=== PATIENT | male | born 1935 | race Caucasian/White ===

== ENCOUNTER 2017-04-29 22:42 | Inpatient (IN) | payer MEDICARE, OTHER ==
[2017-04-29] MEDS ORDERED: LEVALBUTEROL HCL NEB 1.25 MG/3 ML AMPUL NEB ONE (23:14)
[2017-04-29] MEDS ORDERED: NORMAL SALINE 500 ML IV ONE (23:15)
--- NOTE | 2017-04-29 23:21 | ER Document Report ---
ED General - General Chief Complaint: Nausea/Vomiting Stated Complaint: TROUBLE BREATHING Time Seen by Provider: 04/29/17 23:06 Notes: Patient is an 81-year-old male who presents with complaint of shaking and difficulty breathing and vomiting. Family says this all started around 3 PM tonight. He says they are not sure if this is related but symptoms did start shortly after taking a new medication. He ordered a pill called "super beta prostate". Before taking this medicine he felt well. Since then he has been shaking, sweating, and his heart rate has been going fast he said difficulty breathing until now. They have not checked his temperature at home. He has a history of high blood pressure and high cholesterol. He was on Lasix previously but is no longer on that. That was stopped 2 days ago. No sick contacts at home. No other complaints at this time. He is a former smoker. He quit approximately 30 years ago. No history of asthma or COPD. - Related Data Allergies/Adverse Reactions: No Known Allergies Allergy (Verified 11/21/11 13:34) Past Medical History - Social History Smoking Status: Former Smoker Frequency of alcohol use: None Drug Abuse: None Family History: Reviewed & Not Pertinent - Past Medical History Cardiac Medical History: Reports: Hx Hypercholesterolemia, Hx Hypertension Endocrine Medical History: Reports: Hx Diabetes Mellitus Type 2 - Immunizations Hx Diphtheria, Pertussis, Tetanus Vaccination: Yes Review of Systems - Review of Systems Notes: My Normal Review Basic REVIEW OF SYSTEMS: CONSTITUTIONAL : Denies fever, chills, or sweats. Denies recent illness. EENT: Denies eye, ear, throat, or mouth pain or symptoms. Denies nasal or sinus congestion. CARDIOVASCULAR: Denies chest pain. RESPIRATORY: Feels short of breath. GASTROINTESTINAL: Denies abdominal pain. Vomiting. GENITOURINARY: Denies difficulty urinating, painful urination, burning, frequency, or blood in urine. MUSCULOSKELETAL: Denies neck or back pain or joint pain or swelling. SKIN: Denies rash or skin lesions. NEUROLOGICAL: Denies altered mental status or loss of consciousness. Denies headache. Denies weakness or paralysis or loss of use of either side. Has a tremor ALL OTHER SYSTEMS REVIEWED AND NEGATIVE. Physical Exam - Vital signs Vitals: Pulse Resp BP Pulse Ox 127 H 36 H 107/56 L 97 04/29/17 22:50 04/29/17 22:50 04/29/17 22:50 04/29/17 22:50 - Notes Notes: General Appearance: Patient is lying in bed sweating and shaking. Vitals: reviewed, See vital signs table. Head: no swelling or tenderness to the head Eyes: PERRL, EOMI, Conjuctiva clear Mouth: No decreasd moisture Throat: No tonsillar inflammation, No airway obstruction, Neck: Supple, no neck tenderness Lungs: scattered wheezing Heart: tachycardic rate, Regular rythm, No murmur, no rub Abdomen: Normal BS, soft, No rigidity, No abdominal tenderness, No guarding, no rebound, no abdominal masses, no organomegaly Extremities: strength 5/5 in all extremities, good pulses in all extremities, no swelling or tenderness in the extremities, no edema. Skin: warm, dry, appropriate color, no rash Neuro: speech clear, oriented x 3, normal affect, responds appropriately to questions. Course - Re-evaluation Re-evalutation: 04/29/17 23:16 04/29/17 23:18 04/29/17 23:30 Patient's rectal temp is 95. I am looking of the ingredients in the super beta prostate to see if they have any concerning interactions or could cause patient's symptoms. Feel that we have to also do septic workup based on his presentation his age. I will order that workup. I have placed a bear hugger on patient help with his hypothermia. 04/30/17 00:39 Patient still has a tremor on reevaluation. He says he is feeling some better now with a bear hugger's on him. I will place a core temp Mercedes catheter in place. I am waiting for the rest of his lab work come back. I did ask him again about the Lasix that was recently stopped. He said it was stopped because his kidneys were started be affected by it. He says he never has a history of CHF or fluid in his lungs. He says he was on a primarily because he would sometimes get lower extremity edema. Patient's breathing seems little bit better after receiving Xopenex treatment. His lactic acid unfortunately is 11. I will order him IV fluids. Also start antibiotics. I have ordered Zosyn. Await to order the Vancomycin until I see what his kidney function is. I informed the family and the patient with a plan and they are agreeable to it. Patient continues to deny any abdominal pain. He said he did have a little one episode of diarrhea earlier. He did vomit at home as well, but currently does not feel nauseous. 04/30/17 01:38 His core temp is up to 98. Bare blank has been removed. Indwelling Mercedes catheter is placed. He has had approximately a liter of urine out. Creatinine is 1.5. Due to a lactic acid of 11 and the vomiting I will obtain a CT scan of the abdomen pelvis with IV contrast. 04/30/17 02:34 On reevaluation the patient clinically says he is feeling improved. He looks as if he is improving some however he still is ill-appearing and that he still has shaking and tremor, he still tachycardic, he still weak appearing. He is no longer sweating. He is no longer tachypneic. His lung weinberg are almost completely clear. He now just has very slight wheezing. He continues denying abdominal pain and a CT scan was negative for ischemia. He has not had any further vomiting. I do not think patient's symptoms are related to the beta prostate medication he took. I looked up the ingredients I do not see anything that could cause this type of potential reaction with 1 dose of this medication. Mercedes catheter has been placed and we got approximately liter of urine out. There is no evidence of kidney stone on the CT scan. I talked to the patient and his family at length. I informed him that I suspect he is septic. I told him I do not yet have a source of the infection. I will repeat his lactic acid as well as chemistry panel. I informed both patient and family that he is 81 years old and does have some very concerning findings on the left. I informed him that he could get much worse where he could improve over next 24 hours. Meantime we will continue antibiotics. I was called and spoke with Dr. Tejada who is a physician covering for Dr. Garza. I informed the patient's condition and laboratory findings and history. He agrees with admitting the patient. I will place the patient in ICU due to the elevated lactic acid and high heart rate. - Vital Signs Vital signs: Temp Pulse Resp BP Pulse Ox 95.0 F L 127 H 36 H 107/56 L 97 04/29/17 23:26 04/29/17 22:50 04/29/17 22:50 02/09/18 22:50 04/29/17 22:50 - Laboratory Result Diagrams: 04/29/17 23:55 04/29/17 23:55 Laboratory results interpreted by me: 04/29/17 04/29/17 04/29/17 23:55 23:55 23:55 WBC 22.9 H RBC 3.95 L Hgb 12.2 L Hct 37.4 L Seg Neuts % (Manual) 82 H Band Neutrophils % 1 L Lymphocytes % (Manual) 9 L Abs Neuts (Manual) 19.0 H Abs Monocytes (Manual) 1.6 H VBG pH VBG pCO2 VBG HCO3 Potassium 3.5 L Carbon Dioxide 11 L Anion Gap 28 H BUN 21 H Creatinine 1.50 H Est GFR ( Amer) 54 L Est GFR (Non-Af Amer) 45 L Glucose 296 H Lactic Acid 11.6 H Magnesium Urine Glucose (UA) Urine Ketones 04/29/17 04/29/17 04/30/17 23:55 23:55 01:09 WBC RBC Hgb Hct Seg Neuts % (Manual) Band Neutrophils % Lymphocytes % (Manual) Abs Neuts (Manual) Abs Monocytes (Manual) VBG pH 7.25 L VBG pCO2 28.2 L VBG HCO3 12.1 L Potassium Carbon Dioxide Anion Gap BUN Creatinine Est GFR ( Amer) Est GFR (Non-Af Amer) Glucose Lactic Acid Magnesium 1.4 L Urine Glucose (UA) >=500 H Urine Ketones 20 H - EKG Interpretation by Me Additional EKG results interpreted by me: 04/29/17 23:32 EKG is reviewed and interpreted by me. Due to the patient's shaking the EKG is very difficult to interpret as there is a lot of artifact. Heart rate is read by the machine is 127.*Determine if this is A. fib or sinus. I think I can see P waves make me think this is more likely sinus with occasional PVC. I do not see any obvious signs of ST segment elevation or depression; however, again there is a large amount of artifact due to tremor. Once the patient's tremor comes down we will have to do a repeat EKG to be able to clearly assess. Discharge - Discharge Clinical Impression: Tachycardia, Lactic acidosis, Wheezing, Hypokalemia, Hypomagnesemia Sepsis Qualifiers: Sepsis type: sepsis due to unspecified organism Qualified Code(s): A41.9 - Sepsis, unspecified organism Vomiting Qualifiers: Vomiting type: unspecified Vomiting Intractability: unspecified Nausea presence : unspecified Qualified Code(s): R11.10 - Vomiting, unspecified Condition: Serious Disposition: ADMITTED INPATIENT Admitting Provider: [facility] Unit Admitted: ICU
--- NOTE | 2017-04-29 23:56 | RADIOLOGY REPORT (SQ) ---
EXAM DESCRIPTION: CHEST SINGLE VIEW COMPLETED DATE/TIME: 04/29/2017 11:30 pm REASON FOR STUDY: dyspnea COMPARISON: None. EXAM PARAMETERS: NUMBER OF VIEWS: One view. TECHNIQUE: Single frontal radiographic view of the chest acquired. RADIATION DOSE: NA LIMITATIONS: None. FINDINGS: LUNGS AND PLEURA: No opacities, masses or pneumothorax. No pleural effusion. MEDIASTINUM AND HILAR STRUCTURES: No masses. Contour normal. HEART AND VASCULAR STRUCTURES: Heart normal in size. Normal vasculature. BONES: No acute findings. HARDWARE: None in the chest. OTHER: No other significant finding. IMPRESSION: NO ACUTE RADIOGRAPHIC FINDING IN THE CHEST. TECHNICAL DOCUMENTATION: JOB ID: [id number] [id number] 2010 [employer]- All Rights Reserved
[2017-04-30 00:10] LABS: VENOUS BLOOD BASE EXCESS -13.7 mmol/L; VENOUS BLOOD HCO3 12.1 mmol/L (20-32); VENOUS BLOOD PCO2 28.2 mmHg (35-63); VENOUS BLOOD PH 7.25 (7.30-7.42)
[2017-04-30 00:24] LABS: ALANINE AMINOTRANSFERASE 26 U/L (21-72); ALBUMIN 4.7 g/dL (3.5-5.0); ALKALINE PHOSPHATASE 87 U/L (38-126); ASPARTATE AMINO TRANSFERASE 30 U/L (17-59); BILIRUBIN,DIRECT 0.3 mg/dL (0.0-0.4); BILIRUBIN,TOTAL 0.6 mg/dL (0.2-1.3); BLOOD UREA NITROGEN 21 mg/dL (7-20); CALCIUM 10.1 mg/dL (8.4-10.2); CARBON DIOXIDE 11 mmol/L (22-30); CHLORIDE 101 mmol/L (98-107); GLUCOSE 296 mg/dL (75-110); TOTAL PROTEIN 6.9 g/dL (6.3-8.2)
[2017-04-30 00:26] LABS: HEMATOCRIT 37.4 % (37.9-51.0); HEMOGLOBIN 12.2 g/dL (13.5-17.0); MEAN CORPUSCULAR HGB CONC 32.7 g/dL (32.0-36.0); MEAN CORPUSCULAR VOLUME 95 fl (80-97); RED BLOOD COUNT 3.95 10^6/uL (4.35-5.55); RED CELL DISTRIBUTION WIDTH 13.6 % (11.5-14.0); WHITE BLOOD COUNT 22.9 10^3/uL (4.0-10.5)
[2017-04-30 00:31] LABS: SODIUM 139.8 mmol/L (137-145)
[2017-04-30 00:34] LABS: ANION GAP 28 (5-19); POTASSIUM 3.5 mmol/L (3.6-5.0)
[2017-04-30] MEDS ORDERED: PIPERACILLIN/TAZOBACTAM 4.5 GM VIAL IV ONE (00:38)
[2017-04-30 00:50] LABS: ABSOLUTE LYMPHOCYTES# (MANUAL) 2.3 10^3/uL (0.5-4.7); ABSOLUTE MONOCYTES # (MANUAL) 1.6 10^3/uL (0.1-1.4); BAND NEUTROPHILS % (MANUAL) 1 % (3-5); BASOPHILS % (MANUAL) 0 % (0-2); EOSINOPHILS % (MANUAL) 0 % (0-6); LYMPHOCYTES % (MANUAL) 9 % (13-45); MONOCYTES % (MANUAL) 7 % (3-13); SEGMENTED NEUTROPHILS % (MAN) 82 % (42-78); TOTAL CELLS COUNTED 100
[2017-04-30 00:52] LABS: OVALOCYTES SLIGHT; PLATELET CLUMPS PRESENT; PLATELET COMMENT ADEQUATE; PLATELET COUNT 332 10^3/uL (150-450); POIKILOCYTOSIS SLIGHT
[2017-04-30] MEDS ORDERED: NORMAL SALINE 1000 ML 1,000 ML IV ONE (01:17)
[2017-04-30 01:36] LABS: APPEARANCE,URINE CLEAR; BILIRUBIN,URINE NEGATIVE (NEGATIVE); COLOR,URINE YELLOW; GLUCOSE, URINE >=500 mg/dL (NEGATIVE); KETONES,URINE 20 mg/dL (NEGATIVE); LEUKOCYTE ESTERASE,URINE NEGATIVE (NEGATIVE); NITRITE,URINE NEGATIVE (NEGATIVE); PROTEIN,URINE NEGATIVE (NEGATIVE); URINE SPECIFIC GRAVITY 1.009; UROBILINOGEN,URINE NEGATIVE mg/dL (<2.0)
[2017-04-30 01:40] LABS: FREE T4 (FREE THYROXINE) 2.08 ng/dL (0.78-2.19)
[2017-04-30 01:54] LABS: THYROID STIMULATING HORMONE 1.08 uIU/mL (0.47-4.68)
[2017-04-30] MEDS ORDERED: VANCOMYCIN HCL INJ 1000 MG VIAL IV ONE (02:07)
--- NOTE | 2017-04-30 02:18 | RADIOLOGY REPORT (SQ) ---
EXAM DESCRIPTION: CT ABDOMEN AND PELVIS WITH CONTRAST CLINICAL HISTORY: vomiting, diarrhea, elevated alctic acid COMPARISON: None Available. TECHNIQUE: CT of the abdomen and pelvis are performed during IV bolus administration of 89 mL of Isovue-370. DLP: 1439.82 mGycm FINDINGS: Abdomen: The liver has normal size and density. No intrahepatic mass or biliary dilatation. No calcified gallstones. The spleen, pancreas, and adrenal glands are unremarkable. The kidneys have normal size and contour without evidence of solid mass or hydronephrosis. Punctate nonobstructing right renal calculi. Atherosclerotic calcification of the abdominal aorta. IVC is unremarkable. The portal vein patent. The proximal visceral and renal arteries are patent. No free intraperitoneal air. The stomach and duodenum have normal course. Pelvis: Postoperative change in the anterior abdominal wall. Prostate is not enlarged. Mercedes catheter in the urinary bladder. No free pelvic fluid or lymphadenopathy. Scattered diverticula of the colon without pericolic fat stranding. No dilated loops of large or small bowel. Normal appendix. The visualized lung bases are clear. No destructive bone lesions identified. Degenerative change of the spine. IMPRESSION: 1. No acute inflammatory or obstructive abnormality identified. 2. Punctate nonobstructing right renal calculi. 3. Diverticulosis without evidence of acute diverticulitis. This exam was performed according to our departmental dose-optimization program, which includes automated exposure control, adjustment of the mA and/or kV according to patient size and/or use of iterative reconstruction technique.
[2017-04-30] MEDS: MAGNESIUM SULFATE/D5W 1 GM/100 ML RTUPB IV SCH ×2 (03:02→04:19)
[2017-04-30] MEDS: POTASSI CL 20 MEQ/50 ML RIDER 20 MEQ/50 ML RTUPB IV SCH ×2 (03:02→05:16)
[2017-04-30] MEDS ORDERED: RINGERS SOLUTION,LACTATED 1,000 ML IV PRN (03:11)
[2017-04-30 04:28] LABS: ANION GAP 17 (5-19); BLOOD UREA NITROGEN 17 mg/dL (7-20); CALCIUM 9.2 mg/dL (8.4-10.2); CARBON DIOXIDE 17 mmol/L (22-30); CHLORIDE 106 mmol/L (98-107); GLUCOSE 235 mg/dL (75-110); POTASSIUM 3.7 mmol/L (3.6-5.0); SODIUM 139.9 mmol/L (137-145)
[2017-04-30] MEDS ORDERED: INSULIN LISPRO 100 UNIT/ML 3 ML VIAL SUBCUT PRN (07:22)
[2017-04-30] MEDS ORDERED: DEXTROSE 50%-WATER 25 GM/50 ML DISP.SYRIN IV PRN ×2 (07:22)
[2017-04-30] MEDS ORDERED: GLUCAGON,HUMAN RECOMB 1 MG INJ IM PRN (07:22)
[2017-04-30] MEDS ORDERED: DEXTROSE 40% GEL 15 GM TUBE PO PRN ×2 (07:22)
[2017-04-30 08:44] LABS: ARTERIAL BLOOD BASE EXCESS -6.3 mmol/L; ARTERIAL BLOOD H2CO3 0.85 mmol/L (1.05-1.35); ARTERIAL BLOOD HCO3 17.1 mmol/L (20-26); ARTERIAL BLOOD O2 SATURATION 91.7 % (94-98); ARTERIAL BLOOD PCO2 28.4 mmHg (35-45); ARTERIAL BLOOD PO2 60.8 mmHg (80-100)
[2017-04-30 08:45] LABS: INTERNATIONAL RATION (INR) 1.06; PARTIAL THROMBOPLASTIN TIME 31.9 SEC (23.5-35.8); PROTHROMBIN TIME 14.5 SEC (11.4-15.4)
[2017-04-30 08:45] LABS: ARTERIAL BLOOD FIO2 2L
[2017-04-30 09:04] LABS: LIPASE 51.5 U/L (23-300); MAGNESIUM 1.7 mg/dL (1.6-2.3); PHOSPHORUS 2.9 mg/dL (2.5-4.5)
[2017-04-30 09:18] LABS: CREATINE KINASE MB 7.62 ng/mL (<4.55)
[2017-04-30] MEDS: NORMAL SALINE 1000 ML 1,000 ML IV PRN ×2 (09:21→15:42)
[2017-04-30 09:22] LABS: FREE T4 (FREE THYROXINE) 2.06 ng/dL (0.78-2.19)
[2017-04-30 09:26] LABS: TROPONIN I 0.176 ng/mL
[2017-04-30 09:36] LABS: THYROID STIMULATING HORMONE 0.41 uIU/mL (0.47-4.68)
[2017-04-30] MEDS: ENOXAPARIN SODIUM INJ 40 MG/0.4 ML DISP.SYRIN SUBCUT SCH (10:03)
--- NOTE | 2017-04-30 10:22 | EKG REPORT ---
SEVERITY:- ABNORMAL ECG - ATRIAL FIBRILLATION ST ELEVATION, PROBABLE INFERIOR INJURY VS ARTIFACT, REC REPEAT EKG : Confirmed by: Dasha Lezama 30-Apr-2017 10:21:47
--- NOTE | 2017-04-30 10:23 | EKG REPORT ---
SEVERITY:- ABNORMAL ECG - ATRIAL FIBRILLATION, V-RATE 101-142 MULTIFORM VENTRICULAR PREMATURE COMPLEXES NONSPECIFIC INTRAVENTRICULAR CONDUCTION DELAY PROBABLE INFERIOR INFARCT, AGE INDETERMINATE CONSIDER POSTERIOR WALL INVOLVEMENT BASELINE ARTIFACTS PREVENTS ACCURATE INTERP, REC REPEAT EKG : Confirmed by: Dasha Lezama 30-Apr-2017 10:22:50
[2017-04-30] MEDS ORDERED: (PENDING PHARMACY ID) (Clonidine Hcl [Catapres 0.3 Mg Tablet] 0.3 MG) PO SCH (11:45)
[2017-04-30] MEDS: AMPICILLIN SODIUM/SULBACTAM NA 3 GM in NORMAL SALINE 100 ML IV SCH ×2 (12:14→18:46)
--- NOTE | 2017-04-30 13:38 | RADIOLOGY REPORT (SQ) ---
EXAM DESCRIPTION: CTA CHEST COMPLETED DATE/TIME: 04/30/2017 1:12 pm REASON FOR STUDY: hypoxemic COMPARISON: None. TECHNIQUE: CT scan of the chest performed using helical scanning technique with dynamic intravenous contrast injection. Images reviewed with lung, soft tissue and bone windows. Reconstructed coronal and sagittal MPR images reviewed. Additional 3 dimensional post-processing performed to develop Maximal Intensity Projection images ([place] P). All images stored on PACS. All CT scanners at this facility use dose modulation, iterative reconstruction, and/or weight based d osing when appropriate to reduce radiation dose to as low as reasonably achievable (ALARA). [facility]: Dose Right [facility]: CareDose [facility]: Dose Right [facility]: Teradose 4D [facility]: mValent CONTRAST TYPE AND DOSE: contrast/concentration: Isovue 370.00 mg/ml; Total Contrast Delivered: 73.0 ml; Total Saline Delivered: 110.0 ml Contrast bolus adequate for pulmonary arteries and aorta. RENAL FUNCTION: BUN 17 creatinine 1.17. RADIATION DOSE: CT Rad equipment meets quality standard of care and radiation dose reduction techniq ues were employed. CTDIvol: 18.4 - 46.3 mGy. DLP: 731 mGy-cm. . LIMITATIONS: None. FINDINGS: LUNGS AND PLEURA: Mild atelectasis/ scarring. No masses, infiltrates, pneumothorax. No p leural effusions, calcifications. AORTA AND GREAT VESSELS: No aneurysm. Contrast bolus not optimized for the aorta. HEART: No pericardial effusion. No significant coronary artery calcifications. PULMONARY ARTERIES: No emboli visualized in the main pulmonary arteries or the segmental branches. HILAR AND MEDIASTINAL STRUCTURES: No identified masses or abnormal nodes. HARDWARE: None in the chest. UPPER ABDOMEN: No significant findings. Limited exam. THYROID AND OTHER SOFT TISSUES: No masses. No adenopathy. BONES: No acute or significant finding. 3D MIPS: Confirm above findings. OTHER: No other significant finding. IMPRESSION: NORMAL CTA OF THE CHEST. NO PULMONARY EMBOLI. COMMENT: Quality ID # [id number]: Final reports with documentation of one or more dose reduction techniques (e.g., Automated exposure control, adjustment of the mA and/or kV according to patient size, use of iterative reconstruction technique) TECHNICAL DOCUMENTATION: JOB ID: [id number] [employer]- All Rights Reserved
[2017-04-30] MEDS: AMLODIPINE BESYLATE 10 MG TABLET PO SCH (13:52)
[2017-04-30] MEDS: CLONIDINE HCL 0.1 MG TABLET PO SCH ×2 (13:53→21:14)
[2017-04-30] MEDS: ASPIRIN 81 MG TABLET, ENT COATED PO SCH (13:53)
[2017-04-30 17:05] LABS: CREATINE KINASE MB 9.12 ng/mL (<4.55)
[2017-04-30 17:12] LABS: TROPONIN I 0.524 ng/mL
--- NOTE | 2017-04-30 18:28 | PDOC H&P ---
History of Present Illness Admission Date/PCP: 04/30/17 02:51 ROXY AQUINO MD History of Present Illness: JOSE RAMON RAYA is a 81 year old male, he came to the emergency room last night for evaluation of shortness of breath, vomiting, he stated that the symptoms started at about 3 PM yesterday, he took a supplement called super beta prostate and his symptoms started soon after taking the supplement family not sure if this is coincidence or if this is the proximate cause of his symptoms. He is an ex-smoker, he stopped smoking over 30 years ago in the emergency room he was found to be hypothermic, a temperature recorded was 95, the heart rate was 127 the blood work that was done revealed leukocytosis with a left shift the WBC was 22,000. In the emergency room CT scan of the abdomen and pelvis was done it was negative, there was elevated lactic acid leukocytosis hypothymia all consistent with sepsis but there was no definitive source for the sepsis. I was called to admit this patient for Dr. Aquino. Earlier this morning the nurse stated that patient was short of breath and he has increased heart rate ABG was done on 2 L, pH 7.4 PCO2 28.4 PO2 60 bicarbonate 17.1 because of the relative hypoxemia CTA chest was done, it was negative for pulmonary embolism, there was no pneumonia. The neck was supple, patient sensorium was clear, meningitis was not suspected. On skin inspection there was no evidence of cellulitis, rectal examination was done, he has enlarged prostate but no evidence of inflammation on examination. there is no source for this sepsis syndrome. He denies any recent travel, patient said he had a flu shot. Past Medical History Cardiac Medical History: Reports: Hyperlipidema, Hypertension Endocrine Medical History: Reports: Diabetes Mellitus Type 2 Social History Smoking Status: Former Smoker Frequency of Alcohol Use: None Hx Recreational Drug Use: No Hx Prescription Drug Abuse: No - Advance Directive Resuscitation Status: Full Code Family History Family History: Reviewed & Not Pertinent Parental Family History Reviewed: Yes Children Family History Reviewed: Yes Sibling(s) Family History Reviewed.: Yes Medication/Allergy Home Medications: Amlodipine Besylate [Norvasc 10 mg Tablet] 10 mg PO DAILY 04/30/17 Aspirin [Ecotrin 81 mg EC Tablet] 81 mg PO DAILY 04/30/17 Atorvastatin Calcium [Lipitor 40 mg Tablet] 40 mg PO QHS 04/30/17 Clonidine HCl [Catapres 0.3 mg Tablet] 0.3 mg PO Q8 04/30/17 Levothyroxine Sodium [Synthroid 0.088 mg Tablet] 0.088 mg PO Q6AM 04/30/17 Lisinopril [Prinivil 40 mg Tablet] 40 mg PO Q12 04/30/17 Metformin HCl [Glucophage] 1,000 mg PO DAILY 04/30/17 Pantoprazole Sodium [Protonix] 40 mg PO DAILY 04/30/17 Allergies/Adverse Reactions: No Known Allergies Allergy (Verified 11/21/11 13:34) Review of Systems Constitutional: PRESENT: chills Eyes: ABSENT: visual disturbances Ears: ABSENT: hearing changes Cardiovascular: PRESENT: dyspnea on exertion Respiratory: PRESENT: cough Gastrointestinal: PRESENT: vomiting Genitourinary: ABSENT: dysuria, hematuria Musculoskeletal: ABSENT: joint swelling Integumentary: ABSENT: rash, wounds Neurological: ABSENT: abnormal gait, abnormal speech, confusion, dizziness, focal weakness, syncope Psychiatric: ABSENT: anxiety, depression, homidical ideation, suicidal ideation Endocrine: ABSENT: cold intolerance, heat intolerance, menstrual abnormalities, polydipsia, polyuria Hematologic/Lymphatic: ABSENT: easy bleeding, easy bruising, lymphadenopathy Physical Exam Vital Signs: Temp Pulse Resp BP Pulse Ox 98.6 F 145 H 20 134/74 H 96 04/30/17 18:00 04/30/17 18:00 04/30/17 18:00 04/30/17 18:00 04/30/17 18:00 Intake & Output 04/29/17 04/30/17 05/01/17 06:59 06:59 06:59 Intake Total 0 Output Total 1999 2500 Balance -2000 -2500 General appearance: PRESENT: no acute distress Head exam: PRESENT: atraumatic, normocephalic Eye exam: PRESENT: conjunctiva pink, EOMI, PERRLA Ear exam: PRESENT: normal external ear exam Mouth exam: PRESENT: moist, tongue midline Neck exam: PRESENT: full ROM Respiratory exam: PRESENT: clear to auscultation anish Cardiovascular exam: PRESENT: RRR, +S1, +S2 Pulses: PRESENT: normal dorsalis pedis pul, +2 pedal pulses bilateral Vascular exam: PRESENT: normal capillary refill GI/Abdominal exam: PRESENT: normal bowel sounds, soft Rectal exam: PRESENT: deferred Neurological exam: PRESENT: alert, awake, oriented to person, oriented to place , oriented to time, oriented to situation, CN II-XII grossly intact Psychiatric exam: PRESENT: appropriate affect, normal mood Skin exam: PRESENT: dry, intact, warm Results Laboratory Results: 04/30/17 03:57 04/30/17 04/30/17 04/30/17 03:57 03:57 08:05 Carbonic Acid 0.85 L HCO3/H2CO3 Ratio 20:1 ABG pH 7.40 ABG pCO2 28.4 L ABG pO2 60.8 L ABG HCO3 17.1 L ABG O2 Saturation 91.7 L ABG Base Excess -6.3 FiO2 2L Sodium 139.9 Potassium 3.7 Chloride 106 Carbon Dioxide 17 L Anion Gap 17 BUN 17 Creatinine 1.17 Est GFR ( Amer) > 60 Est GFR (Non-Af Amer) > 60 Glucose 235 H Lactic Acid 4.5 H Calcium 9.2 Phosphorus Magnesium Ammonia Amylase Lipase TSH Free T4 04/30/17 04/30/17 04/30/17 08:19 08:19 08:19 Carbonic Acid HCO3/H2CO3 Ratio ABG pH ABG pCO2 ABG pO2 ABG HCO3 ABG O2 Saturation ABG Base Excess FiO2 Sodium Potassium Chloride Carbon Dioxide Anion Gap BUN Creatinine Est GFR ( Amer) Est GFR (Non-Af Amer) Glucose Lactic Acid Calcium Phosphorus 2.9 Magnesium 1.7 Ammonia 12.3 Amylase 164 H Lipase 51.5 TSH 0.41 L Free T4 2.06 04/30/17 04/30/17 04/30/17 08:19 08:19 15:02 Creatine Kinase 385 H Cancelled CK-MB (CK-2) 7.62 H Troponin I 0.176 04/30/17 04/30/17 04/30/17 15:02 16:30 16:30 Creatine Kinase 581 H CK-MB (CK-2) Cancelled 9.12 H Troponin I Cancelled 0.524 Impressions: Chest X-Ray 04/29/17 23:13 IMPRESSION: NO ACUTE RADIOGRAPHIC FINDING IN THE CHEST. Chest/Abdomen CTA 04/30/17 00:00 IMPRESSION: NORMAL CTA OF THE CHEST. NO PULMONARY EMBOLI. Abdomen/Pelvis CT 04/30/17 01:17 IMPRESSION: 1. No acute inflammatory or obstructive abnormality identified. 2. Punctate nonobstructing right renal calculi. 3. Diverticulosis without evidence of acute diverticulitis. This exam was performed according to our departmental dose-optimization program, which includes automated exposure control, adjustment of the mA and/or kV according to patient size and/or use of iterative reconstruction technique. Assessment & Plan - Diagnosis (1) Sepsis Qualifiers: Sepsis type: sepsis due to unspecified organism Qualified Code(s): A41.9 - Sepsis, unspecified organism Is this a current diagnosis for this admission?: Yes Plan: The etiology/source of sepsis is not clear, with treated empirically with antibiotic, Tamiflu, awaiting blood culture results
[2017-04-30] MEDS: OSELTAMIVIR PHOSPHATE 75 MG CAPSULE PO SCH (18:47)
[2017-04-30 20:37] LABS: CREATINE KINASE MB 10.4 ng/mL (<4.55)
[2017-04-30 20:45] LABS: TROPONIN I 0.761 ng/mL
[2017-04-30] MEDS: ATORVASTATIN CALCIUM 40 MG TABLET PO SCH (21:15)
[2017-04-30] MEDS: LISINOPRIL 10 MG TABLET PO SCH (21:15)
[2017-05-01] MEDS: AMPICILLIN SODIUM/SULBACTAM NA 3 GM in NORMAL SALINE 100 ML IV SCH ×5 (00:42→23:32)
[2017-05-01] MEDS ORDERED: DILTIAZEM HCL INJ 25 MG/5 ML VIAL ONE (03:43)
[2017-05-01] MEDS: NORMAL SALINE 1000 ML 1,000 ML IV PRN ×3 (03:55→12:01)
[2017-05-01 03:56] LABS: HEMOGLOBIN 13.6 g/dL (13.5-17.0); MEAN CORPUSCULAR HEMOGLOBIN 31.4 pg (27.0-33.4); MEAN CORPUSCULAR VOLUME 92 fl (80-97); PLATELET COUNT 248 10^3/uL (150-450); RED BLOOD COUNT 4.32 10^6/uL (4.35-5.55); RED CELL DISTRIBUTION WIDTH 13.7 % (11.5-14.0)
[2017-05-01] MEDS ORDERED: NORMAL SALINE 500 ML IV ONE (04:00)
[2017-05-01] MEDS ORDERED: DILTIAZEM HCL INJ 25 MG/5 ML VIAL IV ONE (04:00)
[2017-05-01 04:13] LABS: ALANINE AMINOTRANSFERASE 36 U/L (21-72); ALBUMIN 4.4 g/dL (3.5-5.0); ALKALINE PHOSPHATASE 83 U/L (38-126); ANION GAP 16 (5-19); ASPARTATE AMINO TRANSFERASE 53 U/L (17-59); BILIRUBIN,DIRECT 0.5 mg/dL (0.0-0.4); BILIRUBIN,TOTAL 0.9 mg/dL (0.2-1.3); BLOOD UREA NITROGEN 7 mg/dL (7-20); CALCIUM 10.1 mg/dL (8.4-10.2); CARBON DIOXIDE 21 mmol/L (22-30); CHLORIDE 103 mmol/L (98-107); CHOLESTEROL 118.45 mg/dL (0-200); GLUCOSE 110 mg/dL (75-110); POTASSIUM 3.5 mmol/L (3.6-5.0); SODIUM 140.3 mmol/L (137-145); TOTAL PROTEIN 7.1 g/dL (6.3-8.2); TRIGLYCERIDES 111 mg/dL (<150)
[2017-05-01 04:24] LABS: DIRECT LDL 55 mg/dL (<100)
[2017-05-01 04:37] LABS: ABSOLUTE NEUTROPHILS# (MANUAL) 16.8 10^3/uL (1.7-8.2); BASOPHILS % (MANUAL) 0 % (0-2); EOSINOPHILS % (MANUAL) 1 % (0-6); LYMPHOCYTES % (MANUAL) 10 % (13-45); METAMYELOCYTES % (MANUAL) 1 % (0); MONOCYTES % (MANUAL) 5 % (3-13); SEGMENTED NEUTROPHILS % (MAN) 83 % (42-78); TOTAL CELLS COUNTED 100
[2017-05-01 04:39] LABS: OVALOCYTES SLIGHT; POIKILOCYTOSIS SLIGHT; SCHISTOCYTES SLIGHT; TOXIC GRANULATION 2+
[2017-05-01 04:40] LABS: PLATELET COMMENT ADEQUATE; PLATELET LARGE PRESENT
[2017-05-01] MEDS: LEVOTHYROXINE SODIUM 0.088 MG TABLET PO SCH (06:07)
[2017-05-01] MEDS: CLONIDINE HCL 0.1 MG TABLET PO SCH ×3 (06:08→21:59)
[2017-05-01] MEDS: LANSOPRAZOLE 30 MG TAB.RAP.DR PO SCH (06:08)
--- NOTE | 2017-05-01 09:12 | EKG REPORT ---
SEVERITY:- ABNORMAL ECG - ATRIAL FLUTTER WITH 2:1 CONDUCTION BORDERLINE LEFT AXIS DEVIATION ST DEPRESSION, PROBABLY RATE RELATED : Confirmed by: Dasha Lezama 01-May-2017 09:11:51
--- NOTE | 2017-05-01 09:13 | EKG REPORT ---
SEVERITY:- ABNORMAL ECG - A FLUTTER WITH 2:1 CONDUCTION BORDERLINE LEFT AXIS DEVIATION REPOLARIZATION ABNORMALITY, PROB RATE RELATED : Confirmed by: Dasha Lezama 01-May-2017 09:12:49
--- NOTE | 2017-05-01 09:14 | EKG REPORT ---
SEVERITY:- ABNORMAL ECG - ATRIAL FLUTTER WITH 2;[address] DEPRESSION, PROBABLY RATE RELATED : Confirmed by: Dasha Lezama 01-May-2017 09:13:52
[2017-05-01] MEDS ORDERED: MAGNESIUM SULFATE/D5W 1 GM/100 ML RTUPB IV ONE (11:30)
[2017-05-01] MEDS: ASPIRIN 81 MG TABLET, ENT COATED PO SCH (11:58)
[2017-05-01] MEDS: OSELTAMIVIR PHOSPHATE 75 MG CAPSULE PO SCH ×2 (11:59→19:30)
[2017-05-01] MEDS: AMLODIPINE BESYLATE 10 MG TABLET PO SCH (11:59)
[2017-05-01] MEDS: METFORMIN HCL 500 MG TABLET PO SCH (11:59)
[2017-05-01] MEDS ORDERED: POTASSI CL 20 MEQ/50 ML RIDER 20 MEQ/50 ML RTUPB IV ONE (12:00)
[2017-05-01] MEDS: ENOXAPARIN SODIUM INJ 40 MG/0.4 ML DISP.SYRIN SUBCUT SCH (12:08)
[2017-05-01] MEDS: LISINOPRIL 10 MG TABLET PO SCH ×2 (12:09→22:00)
--- NOTE | 2017-05-01 17:01 | PDOC PROGRESS REPORT ---
Subjective Progress Note for:: 05/01/17 Subjective:: Patient was admitted yesterday with sepsis syndrome, the source of the sepsis is not clear. He is empirically on IV antibiotic, Unasyn and also Tamiflu. Tamiflu testing could not be done because of lack of reagents . Patient seemed to be doing well at this morning, is more responsive, is engaging in conversation with her yesterday. Last night he had episode of narrow complex tachycardia thought to be due to SVT, he had a dose of Lopressor 5 mg IV. He has been having episodes of sinus tachycardia yesterday due to the sepsis syndrome Reason For Visit: SEPSIS SYNDROME CAUSE Physical Exam Vital Signs: Temp Pulse Resp BP Pulse Ox 99.8 F 105 H 20 148/83 H 100 05/01/17 12:02 05/01/17 12:02 05/01/17 12:02 05/01/17 12:02 05/01/17 12:02 Intake & Output 04/30/17 05/01/17 05/02/17 06:59 06:59 06:59 Intake Total 1400 0 Output Total 2000 4800 500 Balance -2000 -3400 -500 Weight 78.6 kg General appearance: PRESENT: no acute distress Head exam: PRESENT: atraumatic, normocephalic Eye exam: PRESENT: conjunctiva pink, EOMI, PERRLA Ear exam: PRESENT: normal external ear exam Mouth exam: PRESENT: moist, tongue midline Neck exam: PRESENT: full ROM Respiratory exam: PRESENT: clear to auscultation anish Cardiovascular exam: PRESENT: RRR, +S1, +S2 Pulses: PRESENT: normal dorsalis pedis pul, +2 pedal pulses bilateral Vascular exam: PRESENT: normal capillary refill GI/Abdominal exam: PRESENT: normal bowel sounds, soft Rectal exam: PRESENT: deferred Neurological exam: PRESENT: alert, awake, oriented to person, oriented to place , oriented to time, oriented to situation, CN II-XII grossly intact Psychiatric exam: PRESENT: appropriate affect, normal mood Skin exam: PRESENT: dry, intact, warm Results Laboratory Results: 05/01/17 03:40 05/01/17 03:40 05/01/17 05/01/17 05/01/17 03:40 03:40 03:40 WBC 20.0 H RBC 4.32 L Hgb 13.6 Hct 40.0 MCV 92 MCH 31.4 MCHC 34.0 RDW 13.7 Plt Count 248 Seg Neutrophils % Not Reportable Lymphocytes % Not Reportable Monocytes % Not Reportable Eosinophils % Not Reportable Basophils % Not Reportable Absolute Neutrophils Not Reportable Absolute Lymphocytes Not Reportable Absolute Monocytes Not Reportable Absolute Eosinophils Not Reportable Absolute Basophils Not Reportable Sodium 140.3 Potassium 3.5 L Chloride 103 Carbon Dioxide 21 L Anion Gap 16 BUN 7 Creatinine 0.95 Est GFR ( Amer) > 60 Est GFR (Non-Af Amer) > 60 Glucose 110 Calcium 10.1 Magnesium 1.5 L Total Bilirubin 0.9 AST 53 ALT 36 Alkaline Phosphatase 83 Total Protein 7.1 Albumin 4.4 Triglycerides 111 Cholesterol 118.45 LDL Cholesterol Direct 55 VLDL Cholesterol 22.0 HDL Cholesterol 53 04/30/17 04/30/17 04/30/17 08:19 08:19 15:02 Creatine Kinase 385 H Cancelled CK-MB (CK-2) 7.62 H Troponin I 0.176 04/30/17 04/30/17 04/30/17 15:02 16:30 16:30 Creatine Kinase 581 H CK-MB (CK-2) Cancelled 9.12 H Troponin I Cancelled 0.524 04/30/17 04/30/17 20:00 20:00 Creatine Kinase 654 H CK-MB (CK-2) 10.40 H Troponin I 0.761 Impressions: Chest X-Ray 04/29/17 23:13 IMPRESSION: NO ACUTE RADIOGRAPHIC FINDING IN THE CHEST. Chest/Abdomen CTA 04/30/17 00:00 IMPRESSION: NORMAL CTA OF THE CHEST. NO PULMONARY EMBOLI. Abdomen/Pelvis CT 04/30/17 01:17 IMPRESSION: 1. No acute inflammatory or obstructive abnormality identified. 2. Punctate nonobstructing right renal calculi. 3. Diverticulosis without evidence of acute diverticulitis. This exam was performed according to our departmental dose-optimization program, which includes automated exposure control, adjustment of the mA and/or kV according to patient size and/or use of iterative reconstruction technique. Assessment & Plan - Diagnosis (1) Sepsis Qualifiers: Sepsis type: sepsis due to unspecified organism Qualified Code(s): A41.9 - Sepsis, unspecified organism Is this a current diagnosis for this admission?: Yes Plan: We will continue the IV antibiotic and the Tamiflu since patient's is responding to the regimen
[2017-05-01] MEDS: ATORVASTATIN CALCIUM 40 MG TABLET PO SCH (22:00)
[2017-05-02 05:22] LABS: ABSOLUTE BASOPHILS # (AUTO) 0.1 10^3/uL (0.0-0.2); ABSOLUTE EOSINOPHILS # (AUTO) 0.2 10^3/uL (0.0-0.6); ABSOLUTE LYMPHOCYTES (AUTO) 2.8 10^3/uL (0.5-4.7); ABSOLUTE MONOCYTES (AUTO) 1.4 10^3/uL (0.1-1.4); ABSOLUTE NEUT (AUTO) 8.3 10^3/uL (1.7-8.2); BASOPHILS % (AUTO) 0.8 % (0-2); EOSINOPHILS % (AUTO) 1.2 % (0-6); HEMATOCRIT 37.6 % (37.9-51.0); HEMOGLOBIN 12.7 g/dL (13.5-17.0); LYMPHOCYTES % (AUTO) 22.1 % (13-45); MEAN CORPUSCULAR HEMOGLOBIN 31.2 pg (27.0-33.4); MEAN CORPUSCULAR HGB CONC 33.6 g/dL (32.0-36.0); MEAN CORPUSCULAR VOLUME 93 fl (80-97); MONOCYTES % (AUTO) 10.7 % (3-13); PLATELET COUNT 212 10^3/uL (150-450); RED BLOOD COUNT 4.06 10^6/uL (4.35-5.55); SEGMENTED NEUTROPHILS % (AUTO) 65.2 % (42-78); TOTAL CELLS COUNTED % (AUTO) 100 %; WHITE BLOOD COUNT 12.7 10^3/uL (4.0-10.5)
[2017-05-02 05:59] LABS: ALANINE AMINOTRANSFERASE 24 U/L (21-72); ALBUMIN 3.4 g/dL (3.5-5.0); ALKALINE PHOSPHATASE 65 U/L (38-126); ANION GAP 11 (5-19); ASPARTATE AMINO TRANSFERASE 28 U/L (17-59); BILIRUBIN,DIRECT 0.1 mg/dL (0.0-0.4); BILIRUBIN,TOTAL 0.7 mg/dL (0.2-1.3); BLOOD UREA NITROGEN 13 mg/dL (7-20); CALCIUM 9.1 mg/dL (8.4-10.2); CARBON DIOXIDE 27 mmol/L (22-30); CHLORIDE 106 mmol/L (98-107); GLUCOSE 129 mg/dL (75-110); POTASSIUM 3.5 mmol/L (3.6-5.0); SODIUM 143.6 mmol/L (137-145); TOTAL PROTEIN 5.5 g/dL (6.3-8.2)
[2017-05-02] MEDS: CLONIDINE HCL 0.1 MG TABLET PO SCH ×3 (06:04→22:37)
[2017-05-02] MEDS: LANSOPRAZOLE 30 MG TAB.RAP.DR PO SCH (06:05)
[2017-05-02] MEDS: LEVOTHYROXINE SODIUM 0.088 MG TABLET PO SCH (06:05)
[2017-05-02] MEDS: AMPICILLIN SODIUM/SULBACTAM NA 3 GM in NORMAL SALINE 100 ML IV SCH ×3 (06:08→17:51)
[2017-05-02] MEDS ORDERED: POTASSIUM CHLORIDE 10 MEQ TABLET.SA PO ONE (08:45)
[2017-05-02] MEDS: METFORMIN HCL 500 MG TABLET PO SCH (10:03)
[2017-05-02] MEDS: ENOXAPARIN SODIUM INJ 40 MG/0.4 ML DISP.SYRIN SUBCUT SCH (10:06)
[2017-05-02] MEDS: LISINOPRIL 10 MG TABLET PO SCH (10:06)
[2017-05-02] MEDS: OSELTAMIVIR PHOSPHATE 75 MG CAPSULE PO SCH ×2 (10:09→17:51)
[2017-05-02] MEDS: AMLODIPINE BESYLATE 10 MG TABLET PO SCH (12:30)
[2017-05-02] MEDS: ASPIRIN 81 MG TABLET, ENT COATED PO SCH (12:37)
--- NOTE | 2017-05-02 13:20 | PDOC PROGRESS REPORT ---
Subjective Progress Note for:: 05/02/17 Subjective:: Patient was admitting in the hospital for possible sepsis and possible flulike symptoms and patient is currently doing much better Patient's denied any chest pain denied any shortness of the breath In the weekends patient have a some cardiac arrhythmias And patient's otherwise magnesium's level is all stable potassiums will replace it today Reason For Visit: SEPSIS SYNDROME CAUSE Physical Exam Vital Signs: Temp Pulse Resp BP Pulse Ox 97.7 F 93 20 109/58 L 97 05/02/17 11:34 05/02/17 11:34 05/02/17 11:34 05/02/17 11:34 05/02/17 11:34 Intake & Output 05/01/17 05/02/17 05/03/17 06:59 06:59 06:59 Intake Total 1400 3373 Output Total 4800 2600 Balance -3400 773 Weight 78.6 kg 78.4 kg General appearance: PRESENT: no acute distress, well-developed, well-nourished Head exam: PRESENT: atraumatic, normocephalic Eye exam: PRESENT: conjunctiva pink, EOMI, PERRLA. ABSENT: scleral icterus Ear exam: PRESENT: normal external ear exam Mouth exam: PRESENT: moist, tongue midline Neck exam: PRESENT: full ROM. ABSENT: carotid bruit, JVD, lymphadenopathy, thyromegaly Respiratory exam: PRESENT: clear to auscultation anish Cardiovascular exam: PRESENT: RRR. ABSENT: diastolic murmur, rubs, systolic murmur Pulses: PRESENT: normal dorsalis pedis pul, +2 pedal pulses bilateral Vascular exam: PRESENT: normal capillary refill GI/Abdominal exam: PRESENT: normal bowel sounds, soft. ABSENT: distended, guarding, mass, organolmegaly, rebound, tenderness Rectal exam: PRESENT: deferred Neurological exam: PRESENT: alert, awake, oriented to person, oriented to place , oriented to time, oriented to situation, CN II-XII grossly intact. ABSENT: motor sensory deficit Psychiatric exam: PRESENT: appropriate affect, normal mood. ABSENT: homicidal ideation, suicidal ideation Skin exam: PRESENT: dry, intact, warm. ABSENT: cyanosis, rash Results Laboratory Results: 05/02/17 05:04 05/02/17 05:04 05/02/17 05/02/17 05/02/17 05:04 05:04 05:04 WBC 12.7 H RBC 4.06 L Hgb 12.7 L Hct 37.6 L MCV 93 MCH 31.2 MCHC 33.6 RDW 14.0 Plt Count 212 Seg Neutrophils % 65.2 Lymphocytes % 22.1 Monocytes % 10.7 Eosinophils % 1.2 Basophils % 0.8 Absolute Neutrophils 8.3 H Absolute Lymphocytes 2.8 Absolute Monocytes 1.4 Absolute Eosinophils 0.2 Absolute Basophils 0.1 Sodium 143.6 Potassium 3.5 L Chloride 106 Carbon Dioxide 27 Anion Gap 11 BUN 13 Creatinine 1.11 Est GFR ( Amer) > 60 Est GFR (Non-Af Amer) > 60 Glucose 129 H Calcium 9.1 Magnesium 1.8 Total Bilirubin 0.7 AST 28 ALT 24 Alkaline Phosphatase 65 Total Protein 5.5 L Albumin 3.4 L 04/30/17 04/30/17 04/30/17 08:19 08:19 15:02 Creatine Kinase 385 H Cancelled CK-MB (CK-2) 7.62 H Troponin I 0.176 04/30/17 04/30/17 04/30/17 15:02 16:30 16:30 Creatine Kinase 581 H CK-MB (CK-2) Cancelled 9.12 H Troponin I Cancelled 0.524 04/30/17 04/30/17 20:00 20:00 Creatine Kinase 654 H CK-MB (CK-2) 10.40 H Troponin I 0.761 Impressions: Chest X-Ray 04/29/17 23:13 IMPRESSION: NO ACUTE RADIOGRAPHIC FINDING IN THE CHEST. Chest/Abdomen CTA 04/30/17 00:00 IMPRESSION: NORMAL CTA OF THE CHEST. NO PULMONARY EMBOLI. Abdomen/Pelvis CT 04/30/17 01:17 IMPRESSION: 1. No acute inflammatory or obstructive abnormality identified. 2. Punctate nonobstructing right renal calculi. 3. Diverticulosis without evidence of acute diverticulitis. This exam was performed according to our departmental dose-optimization program, which includes automated exposure control, adjustment of the mA and/or kV according to patient size and/or use of iterative reconstruction technique. Assessment & Plan - Diagnosis (1) Sepsis Qualifiers: Sepsis type: sepsis due to unspecified organism Qualified Code(s): A41.9 - Sepsis, unspecified organism Is this a current diagnosis for this admission?: Yes Plan: With unclear etiologies but patient is responding well well with the current medications (2) Tachycardia Is this a current diagnosis for this admission?: Yes Plan: Patient CT angiogram is negative for any PE we consult the Cardiology (3) Hypokalemia Is this a current diagnosis for this admission?: Yes Plan: Replace the potassiums (4) Hypertension Qualifiers: Hypertension type: essential hypertension Qualified Code(s): I10 - Essential (primary) hypertension Is this a current diagnosis for this admission?: Yes Plan: Currently stable continues to current medications (5) Type 2 diabetes mellitus Qualifiers: Diabetes mellitus complication status: with unspecified complications Is this a current diagnosis for this admission?: Yes Plan: Continues to current medication and sliding scale with [facility] protocol - Time Time Spent with patient: 15-24 minutes Medications reviewed and adjusted accordingly: Yes Anticipated discharge: Home Within: Other - Inpatient Certification Medical Necessity: Need Close Monitoring Due to Risk of Patient Decompensation Post Hospital Care: D/C Distribution Accounting Clerk Documentation - Plan Summary Plan Summary: Will DC the Mercedes catheter get the physical therapy evaluation and consult the cardiology
[2017-05-02] MEDS ORDERED: METOPROLOL SUCCINATE 25 MG TAB.SR.24H PO ONE (20:26)
[2017-05-02] MEDS: METOPROLOL SUCCINATE 25 MG TAB.SR.24H PO SCH (22:36)
[2017-05-02] MEDS: ATORVASTATIN CALCIUM 40 MG TABLET PO SCH (22:37)
[2017-05-03] MEDS: AMPICILLIN SODIUM/SULBACTAM NA 3 GM in NORMAL SALINE 100 ML IV SCH ×2 (01:19→06:25)
[2017-05-03 04:55] LABS: ABSOLUTE BASOPHILS # (AUTO) 0.1 10^3/uL (0.0-0.2); ABSOLUTE EOSINOPHILS # (AUTO) 0.7 10^3/uL (0.0-0.6); ABSOLUTE LYMPHOCYTES (AUTO) 3.1 10^3/uL (0.5-4.7); ABSOLUTE MONOCYTES (AUTO) 1.3 10^3/uL (0.1-1.4); ABSOLUTE NEUT (AUTO) 5.4 10^3/uL (1.7-8.2); BASOPHILS % (AUTO) 0.7 % (0-2); EOSINOPHILS % (AUTO) 6.7 % (0-6); HEMATOCRIT 37.6 % (37.9-51.0); HEMOGLOBIN 12.8 g/dL (13.5-17.0); LYMPHOCYTES % (AUTO) 29.3 % (13-45); MEAN CORPUSCULAR HEMOGLOBIN 31.6 pg (27.0-33.4); MEAN CORPUSCULAR HGB CONC 34.1 g/dL (32.0-36.0); MEAN CORPUSCULAR VOLUME 93 fl (80-97); MONOCYTES % (AUTO) 11.9 % (3-13); PLATELET COUNT 219 10^3/uL (150-450); RED BLOOD COUNT 4.06 10^6/uL (4.35-5.55); RED CELL DISTRIBUTION WIDTH 13.6 % (11.5-14.0); SEGMENTED NEUTROPHILS % (AUTO) 51.4 % (42-78); TOTAL CELLS COUNTED % (AUTO) 100 %; WHITE BLOOD COUNT 10.6 10^3/uL (4.0-10.5)
[2017-05-03 05:11] LABS: ALANINE AMINOTRANSFERASE 36 U/L (21-72); ALBUMIN 3.1 g/dL (3.5-5.0); ALKALINE PHOSPHATASE 63 U/L (38-126); ANION GAP 11 (5-19); ASPARTATE AMINO TRANSFERASE 44 U/L (17-59); BILIRUBIN,DIRECT 0.5 mg/dL (0.0-0.4); BILIRUBIN,TOTAL 0.6 mg/dL (0.2-1.3); BLOOD UREA NITROGEN 19 mg/dL (7-20); CARBON DIOXIDE 25 mmol/L (22-30); CHLORIDE 107 mmol/L (98-107); GLUCOSE 129 mg/dL (75-110); POTASSIUM 3.9 mmol/L (3.6-5.0); SODIUM 142.6 mmol/L (137-145); TOTAL PROTEIN 5.6 g/dL (6.3-8.2)
[2017-05-03] MEDS: CLONIDINE HCL 0.1 MG TABLET PO SCH ×2 (06:24→14:26)
[2017-05-03] MEDS: LEVOTHYROXINE SODIUM 0.088 MG TABLET PO SCH (06:24)
[2017-05-03] MEDS: LANSOPRAZOLE 30 MG TAB.RAP.DR PO SCH (06:24)
--- NOTE | 2017-05-03 09:30 | EKG REPORT ---
SEVERITY:- ABNORMAL ECG - SINUS RHYTHM : Confirmed by: Dasha Lezama 03-May-2017 09:29:34
[2017-05-03] MEDS: METOPROLOL SUCCINATE 25 MG TAB.SR.24H PO SCH (09:47)
[2017-05-03] MEDS: METFORMIN HCL 500 MG TABLET PO SCH (09:47)
[2017-05-03] MEDS: LISINOPRIL 10 MG TABLET PO SCH (09:48)
[2017-05-03] MEDS: OSELTAMIVIR PHOSPHATE 75 MG CAPSULE PO SCH ×2 (09:48→17:19)
[2017-05-03] MEDS: APIXABAN 2.5 MG TABLET PO SCH ×2 (09:48→17:19)
[2017-05-03] MEDS ORDERED: APIXABAN 2.5 MG TABLET PO SCH (10:00)
[2017-05-03] MEDS ORDERED: LISINOPRIL 10 MG TABLET PO ONE (11:00)
[2017-05-03] MEDS ORDERED: LISINOPRIL 10 MG TABLET ONE (14:19)
[2017-05-03] MEDS: AMLODIPINE BESYLATE 10 MG TABLET PO SCH (14:25)
[2017-05-03] MEDS: AMOXICILLIN TR/POT CLAVULANATE 500-125 MG TAB PO SCH (14:25)
[2017-05-03] MEDS: ASPIRIN 81 MG TABLET, ENT COATED PO SCH (14:26)
--- NOTE | 2017-05-03 14:58 | PDOC CONSULTATION ---
Consultation Consult Date: 05/02/17 Attending physician:: ROXY AQUINO Consult reason:: Atrial flutter fibrillation History of Present Illness Admission Date/PCP: 04/30/17 02:51 ROXY AQUINO MD Patient complains of: Generalized weakness History of Present Illness: JOSE RAMON RAYA is a 81 year old male, he came to the emergency room last night for evaluation of shortness of breath, vomiting, he stated that the symptoms started at about 3 PM yesterday, he took a supplement called super beta prostate and his symptoms started soon after taking the supplement family not sure if this is coincidence or if this is the proximate cause of his symptoms. He is an ex-smoker, he stopped smoking over 30 years ago in the emergency room he was found to be hypothermic, a temperature recorded was 95, the heart rate was 127 the blood work that was done revealed leukocytosis with a left shift the WBC was 22,000. In the emergency room CT scan of the abdomen and pelvis was done it was negative, there was elevated lactic acid leukocytosis hypothymia all consistent with sepsis but there was no definitive source for the sepsis. I was called to admit this patient for Dr. Aquino. Earlier this morning the nurse stated that patient was short of breath and he has increased heart rate ABG was done on 2 L, pH 7.4 PCO2 28.4 PO2 60 bicarbonate 17.1 because of the relative hypoxemia CTA chest was done, it was negative for pulmonary embolism, there was no pneumonia. The neck was supple, patient sensorium was clear, meningitis was not suspected. On skin inspection there was no evidence of cellulitis, rectal examination was done, he has enlarged prostate but no evidence of inflammation on examination. there is no source for this sepsis syndrome. He denies any recent travel, patient said he had a flu shot. This history was reviewed, confirmed and supplemented. While in the hospital patient noted to have atrial flutter fibrillation with rapid ventricular response. I have been asked to evaluate patient regarding this condition. Past Medical History Cardiac Medical History: Reports: Hyperlipidema, Hypertension Endocrine Medical History: Reports: Diabetes Mellitus Type 2 Psychiatric Medical History: Denies: Depression Social History Information Source: Patient Smoking Status: Former Smoker Frequency of Alcohol Use: None Hx Recreational Drug Use: No Hx Prescription Drug Abuse: No - Advance Directive Resuscitation Status: Full Code Surrogate healthcare decision maker:: Patient's is a surrogate decision-maker Family History Family History: Hypertension Parental Family History Reviewed: Yes Children Family History Reviewed: Yes Sibling(s) Family History Reviewed.: Yes Medication/Allergy Home Medications: Amlodipine Besylate [Norvasc 10 mg Tablet] 10 mg PO DAILY 04/30/17 Aspirin [Ecotrin 81 mg EC Tablet] 81 mg PO DAILY 04/30/17 Atorvastatin Calcium [Lipitor 40 mg Tablet] 40 mg PO QHS 04/30/17 Clonidine HCl [Catapres 0.3 mg Tablet] 0.3 mg PO Q8 04/30/17 Levothyroxine Sodium [Synthroid 0.088 mg Tablet] 0.088 mg PO Q6AM 04/30/17 Metformin HCl [Glucophage] 1,000 mg PO DAILY 04/30/17 Pantoprazole Sodium [Protonix] 40 mg PO DAILY 04/30/17 Amox Tr/Potassium Clavulanate [Augmentin "500" Tablet] 1 tab PO Q8 #15 tablet 05/04/17 Apixaban [Eliquis 2.5 mg Tablet] 2.5 mg PO BID #60 tablet 05/04/17 Lactobacillus Acidophilus [Acidophilus] 1 each PO BID #10 tablet 05/04/17 Lisinopril [Prinivil 10 mg Tablet] 10 mg PO DAILY #0 tablet 05/04/17 Metoprolol Succinate [Toprol Xl 25 mg Tab.sr] 25 mg PO Q12 #60 tab.sr.24h Oseltamivir Phosphate [Tamiflu 75 mg Capsule] 75 mg PO BID #4 capsule 05/04/17 Allergies/Adverse Reactions: No Known Allergies Allergy (Verified 11/21/11 13:34) Review of Systems Review of Systems: Please see history of present illness and past medical history as wall. Constitutional: fever or chills reported. Head : No recent chronic headaches, recent head injury. Eyes: No recent eye pain, diplopia, redness, discharge, acute visual changes. Ears: No recent chronic ear pain, acute hearing loss, ear discharge. Oral cavity: No recent ulcerations, bleeding, oral cavity discomfort. Neck: No recent acute neck pain reported. Hematologic: No recent easy bruising or bleeding or hematologic malignancy reported. Lymphatic: No recent lymphatic malignancy, chronic lymphadenopathy reported yet Cardiovascular system review: See history of present illness. Respiratory system review: No recent chronic cough, hemoptysis, blood clots in the lungs reported. Mild Shortness of breath on exertion Gastrointestinal system review: Negative for any recent acute or chronic abdominal pain, hematemesis, melena, recent change in bowel habits. Genitourinary system review: No recent acute or chronic hematuria, flank pain, UTI etc. reported. Skin system review: Negative for any recent abnormal bruising, no rash, no pruritus reported. Neurologic: No prior history of strokes, mini strokes, seizure disorder. Psychologic: No history of major psychosis or major depression reported. Musculoskeletal: Minor aches and pains reported. No acute joint swelling reported. Endocrine: No recent polyuria, polydipsia, recent heat or cold intolerance. Physical Exam Vital Signs: Temp Pulse Resp BP Pulse Ox 97.4 F 105 H 20 142/58 H 97 05/02/17 17:17 05/02/17 19:00 05/02/17 17:17 05/02/17 17:17 05/02/17 17:17 Intake & Output 05/01/17 05/02/17 05/03/17 06:59 06:59 06:59 Intake Total 1400 3373 1558 Output Total 4800 2600 700 Balance -3400 773 858 Weight 78.6 kg 78.4 kg Exam: GENERAL: well-nourished and in no acute distress. Alert and oriented x3 HEAD: Atraumatic, normocephalic. EYES: Pupils equal round and reactive to light, extraocular movements intact, sclera anicteric, conjunctiva are normal. ENT: TMs normal, nares patent, oropharynx clear without exudates. Moist mucous membranes. No oral ulcerations or bleeding gums noted NECK: supple without lymphadenopathy. Trachea is central. No cervical or axillary lymphadenopathy noted. Carotids are 2+, JVD WNL LUNGS: Respiration seems nonlabored, no significant accessory muscle action noted. Breath sounds clear to auscultation bilaterally and equal noted. No wheezes rales or rhonchi noted. No significant dullness noted on percussion. CHEST: Palpation of the chest wall shows no significant chest wall tenderness. No other significant abnormalities noted. HEART: Marion CUTTER [place]REL DRUM, No PSH, 1/6 JERI aortic area, 1/6 martinez systolic murmur mitral area, no rubs, no gallops. ABDOMEN: Soft, no significant tenderness appreciated, normoactive bowel sounds. No guarding, no rebound. No rigidity noted . No masses appreciated. EXTREMITIES: Pedal pulses are 1-2+, no calf tenderness noted. No clubbing or cyanosis.trace to 1+ pedal edema noted NEUROLOGICAL: Focused neurological exam showed no significant neurologic deficit. Normal speech, no focal weakness appreciated. PSYCH: Normal mood, normal affect. Judgment and insight within normal limits. SKIN: No significant ecchymosis, rash, ulcerations or signs of pruritus noted. MUSCULOSKELETAL EXAM: No significant joint swelling noted. Results Laboratory Results: 05/02/17 05:04 05/02/17 05:04 05/02/17 05/02/17 05/02/17 05:04 05:04 05:04 WBC 12.7 H RBC 4.06 L Hgb 12.7 L Hct 37.6 L MCV 93 MCH 31.2 MCHC 33.6 RDW 14.0 Plt Count 212 Seg Neutrophils % 65.2 Lymphocytes % 22.1 Monocytes % 10.7 Eosinophils % 1.2 Basophils % 0.8 Absolute Neutrophils 8.3 H Absolute Lymphocytes 2.8 Absolute Monocytes 1.4 Absolute Eosinophils 0.2 Absolute Basophils 0.1 Sodium 143.6 Potassium 3.5 L Chloride 106 Carbon Dioxide 27 Anion Gap 11 BUN 13 Creatinine 1.11 Est GFR ( Amer) > 60 Est GFR (Non-Af Amer) > 60 Glucose 129 H Calcium 9.1 Magnesium 1.8 Total Bilirubin 0.7 AST 28 ALT 24 Alkaline Phosphatase 65 Total Protein 5.5 L Albumin 3.4 L 04/30/17 04/30/17 04/30/17 08:19 08:19 15:02 Creatine Kinase 385 H Cancelled CK-MB (CK-2) 7.62 H Troponin I 0.176 04/30/17 04/30/17 04/30/17 15:02 16:30 16:30 Creatine Kinase 581 H CK-MB (CK-2) Cancelled 9.12 H Troponin I Cancelled 0.524 04/30/17 04/30/17 20:00 20:00 Creatine Kinase 654 H CK-MB (CK-2) 10.40 H Troponin I 0.761 EKG Comments: Sinus rhythm with frequent APCs Impressions: Chest X-Ray 04/29/17 23:13 IMPRESSION: NO ACUTE RADIOGRAPHIC FINDING IN THE CHEST. Chest/Abdomen CTA 04/30/17 00:00 IMPRESSION: NORMAL CTA OF THE CHEST. NO PULMONARY EMBOLI. Abdomen/Pelvis CT 04/30/17 01:17 IMPRESSION: 1. No acute inflammatory or obstructive abnormality identified. 2. Punctate nonobstructing right renal calculi. 3. Diverticulosis without evidence of acute diverticulitis. This exam was performed according to our departmental dose-optimization program, which includes automated exposure control, adjustment of the mA and/or kV according to patient size and/or use of iterative reconstruction technique. Assessment & Plan - Diagnosis (1) Atrial fibrillation Qualifiers: Atrial fibrillation type: paroxysmal Qualified Code(s): I48.0 - Paroxysmal atrial fibrillation Is this a current diagnosis for this admission?: Yes (2) Hypertension Qualifiers: Hypertension type: essential hypertension Qualified Code(s): I10 - Essential (primary) hypertension Is this a current diagnosis for this admission?: Yes (3) Type 2 diabetes mellitus Qualifiers: Diabetes mellitus complication status: with unspecified complications Is this a current diagnosis for this admission?: Yes (4) Sepsis Qualifiers: Sepsis type: sepsis due to unspecified organism Qualified Code(s): A41.9 - Sepsis, unspecified organism Is this a current diagnosis for this admission?: Yes (5) NSTEMI (non-ST elevated myocardial infarction) Is this a current diagnosis for this admission?: Yes - Notes Notes: Atrial fibrillation: Paroxysmal. Patient has high chads score. At this point recommend chronic anticoagulation if there are no contraindication. Patient empirically started on Eliquis therapy. For rate control patient placed on metoprolol succinate 25 mg p.o. twice daily. Increase as tolerated. Non-STEMI: Most likely related to sepsis. Patient not having any significant ST segment changes. He also denied any chest pain. Patient to be started on beta-anisha nevertheless. Continue with Eliquis therapy. Patient may benefit from a stress test at a later date preferably as an outpatient if needed. Hypertension: Blood pressure under satisfactory control. Continue with current antihypertensive regimen. Diabetes: Recommend good control of blood sugar. However should avoid any hypoglycemia and hyperglycemia. Patient being expertly managed by primary care MDeepa/hospitalist Sepsis: This is being well managed by the optical instrument assembler. Currently it is coming under control. Continue current therapeutic regimen. Recommend maintaining electrolytes within normal range. - Time Time Spent: 30 to 50 Minutes - CODE STATUS was discussed, patient remains full code. Surrogate decision-maker patient's . Multiple medical problems were addressed. More than 50% of the time spent coordinating care, discussing management plans with involved caregivers. Management plans discussed with involved personnels. Medical decision making was of moderate to high complexity , patient's has multiple comorbidities. Medications reviewed and adjusted accordingly: Yes
--- NOTE | 2017-05-03 16:57 | PDOC PROGRESS REPORT ---
Subjective Progress Note for:: 05/03/17 Subjective:: Patient is currently doing well pt has denied any chest pain denied any shortness of the breath Since seen by cardiology and started on Eliquis and patients walk with the walker with the physical therapy and doing well Patient's denied any headache denied any abdominal pain and no fever Reason For Visit: SEPSIS SYNDROME CAUSE Physical Exam Vital Signs: Temp Pulse Resp BP Pulse Ox 98.0 F 59 L 16 125/67 97 05/03/17 15:14 05/03/17 15:14 05/03/17 15:14 05/03/17 15:14 05/03/17 15:14 Intake & Output 05/02/17 05/03/17 05/04/17 06:59 06:59 06:59 Intake Total 3373 2468 10 Output Total 2600 2325 Balance 773 143 10 Weight 78.4 kg 78.9 kg General appearance: PRESENT: no acute distress, well-developed, well-nourished Head exam: PRESENT: atraumatic, normocephalic Eye exam: PRESENT: conjunctiva pink, EOMI, PERRLA. ABSENT: scleral icterus Ear exam: PRESENT: normal external ear exam Mouth exam: PRESENT: moist, tongue midline Neck exam: PRESENT: full ROM. ABSENT: carotid bruit, JVD, lymphadenopathy, thyromegaly Respiratory exam: PRESENT: clear to auscultation anish Cardiovascular exam: PRESENT: RRR. ABSENT: diastolic murmur, rubs, systolic murmur Pulses: PRESENT: normal dorsalis pedis pul, +2 pedal pulses bilateral Vascular exam: PRESENT: normal capillary refill GI/Abdominal exam: PRESENT: normal bowel sounds, soft. ABSENT: distended, guarding, mass, organolmegaly, rebound, tenderness Rectal exam: PRESENT: deferred Musculoskeletal exam: PRESENT: ambulatory Neurological exam: PRESENT: alert, awake, oriented to person, oriented to place , oriented to time, oriented to situation, CN II-XII grossly intact. ABSENT: motor sensory deficit Psychiatric exam: PRESENT: appropriate affect, normal mood. ABSENT: homicidal ideation, suicidal ideation Skin exam: PRESENT: dry, intact, warm. ABSENT: cyanosis, rash Results Laboratory Results: 05/03/17 04:42 05/03/17 04:42 05/03/17 05/03/17 04:42 04:42 WBC 10.6 H RBC 4.06 L Hgb 12.8 L Hct 37.6 L MCV 93 MCH 31.6 MCHC 34.1 RDW 13.6 Plt Count 219 Seg Neutrophils % 51.4 Lymphocytes % 29.3 Monocytes % 11.9 Eosinophils % 6.7 H Basophils % 0.7 Absolute Neutrophils 5.4 Absolute Lymphocytes 3.1 Absolute Monocytes 1.3 Absolute Eosinophils 0.7 H Absolute Basophils 0.1 Sodium 142.6 Potassium 3.9 Chloride 107 Carbon Dioxide 25 Anion Gap 11 BUN 19 Creatinine 0.92 Est GFR ( Amer) > 60 Est GFR (Non-Af Amer) > 60 Glucose 129 H Calcium 9.0 Total Bilirubin 0.6 AST 44 ALT 36 Alkaline Phosphatase 63 Total Protein 5.6 L Albumin 3.1 L 04/30/17 04/30/17 04/30/17 08:19 08:19 15:02 Creatine Kinase 385 H Cancelled CK-MB (CK-2) 7.62 H Troponin I 0.176 04/30/17 04/30/17 04/30/17 15:02 16:30 16:30 Creatine Kinase 581 H CK-MB (CK-2) Cancelled 9.12 H Troponin I Cancelled 0.524 04/30/17 04/30/17 20:00 20:00 Creatine Kinase 654 H CK-MB (CK-2) 10.40 H Troponin I 0.761 Impressions: Chest X-Ray 04/29/17 23:13 IMPRESSION: NO ACUTE RADIOGRAPHIC FINDING IN THE CHEST. Chest/Abdomen CTA 04/30/17 00:00 IMPRESSION: NORMAL CTA OF THE CHEST. NO PULMONARY EMBOLI. Abdomen/Pelvis CT 04/30/17 01:17 IMPRESSION: 1. No acute inflammatory or obstructive abnormality identified. 2. Punctate nonobstructing right renal calculi. 3. Diverticulosis without evidence of acute diverticulitis. This exam was performed according to our departmental dose-optimization program, which includes automated exposure control, adjustment of the mA and/or kV according to patient size and/or use of iterative reconstruction technique. Assessment & Plan - Diagnosis (1) Sepsis Qualifiers: Sepsis type: sepsis due to unspecified organism Qualified Code(s): A41.9 - Sepsis, unspecified organism Is this a current diagnosis for this admission?: Yes Plan: With unclear etiologies but patient is responding well well with the current medications (2) Tachycardia Is this a current diagnosis for this admission?: Yes Plan: Patient CT angiogram is negative for any PE we consult the Cardiology (3) Hypokalemia Is this a current diagnosis for this admission?: Yes Plan: All stable (4) Hypertension Qualifiers: Hypertension type: essential hypertension Qualified Code(s): I10 - Essential (primary) hypertension Is this a current diagnosis for this admission?: Yes Plan: Currently stable continues to current medications (5) Type 2 diabetes mellitus Qualifiers: Diabetes mellitus complication status: with unspecified complications Is this a current diagnosis for this admission?: Yes Plan: Continues to current medication and sliding scale with [facility] protocol - Plan Summary Plan Summary: We will switch everything p.o. discussed with the patient about Eliquis and side effect and a fall precautions and patient understand very well
[2017-05-03] MEDS: LACTOBACILLUS ACIDOPHILUS 250 MG TAB PO SCH (17:19)
--- NOTE | 2017-05-03 19:36 | PDOC PROGRESS REPORT ---
Subjective Progress Note for:: 05/03/17 Subjective:: Patient seems to be doing better with gradual improvement. Pt is denying any chest arm or neck discomfort. Patient denying any PND, orthopnea. Patient denied any sustained palpitations, dizziness, syncope, near syncope. Patient denying any fever chills. Patient denying any other significant discomfort. Patient is maintaining sinus rhythm. Frequent APCs and occasional VPCs noted Review of systems: Rest review of systems negative. Medications: Medications have been reviewed. Reason For Visit: SEPSIS SYNDROME CAUSE Physical Exam Vital Signs: Temp Pulse Resp BP Pulse Ox 98.0 F 59 L 16 125/67 97 05/03/17 15:14 05/03/17 15:14 05/03/17 15:14 05/03/17 15:14 05/03/17 15:14 Intake & Output 05/02/17 05/03/17 05/04/17 06:59 06:59 06:59 Intake Total 3373 2468 484 Output Total 2600 2325 Balance 773 143 484 Weight 78.4 kg 78.9 kg Exam: GENERAL: well-nourished and in no acute distress. Alert and oriented x3 HEAD: Atraumatic, normocephalic. EYES: Pupils equal round and reactive to light, extraocular movements intact, sclera anicteric, conjunctiva are normal. ENT: TMs normal, nares patent, oropharynx clear without exudates. Moist mucous membranes. No oral ulcerations or bleeding gums noted NECK: supple without lymphadenopathy. Trachea is central. No cervical or axillary lymphadenopathy noted. Carotids are 2+, JVD WNL LUNGS: Respiration seems nonlabored, no significant accessory muscle action noted. Breath sounds clear to auscultation bilaterally and equal noted. No wheezes rales or rhonchi noted. No significant dullness noted on percussion. CHEST: Palpation of the chest wall shows no significant chest wall tenderness. No other significant abnormalities noted. 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 ABDOMEN: Soft, no significant tenderness appreciated, normoactive bowel sounds. No guarding, no rebound. No rigidity noted . No masses appreciated. EXTREMITIES: Pedal pulses are 1-2+, no calf tenderness noted. No clubbing or cyanosis.trace to 1+ pedal edema noted NEUROLOGICAL: Focused neurological exam showed no significant neurologic deficit. Normal speech, no focal weakness appreciated. PSYCH: Normal mood, normal affect. Judgment and insight within normal limits. SKIN: No significant ecchymosis, rash, ulcerations or signs of pruritus noted. MUSCULOSKELETAL EXAM: No significant joint swelling noted. Results Laboratory Results: 05/03/17 04:42 05/03/17 04:42 05/03/17 05/03/17 04:42 04:42 WBC 10.6 H RBC 4.06 L Hgb 12.8 L Hct 37.6 L MCV 93 MCH 31.6 MCHC 34.1 RDW 13.6 Plt Count 219 Seg Neutrophils % 51.4 Lymphocytes % 29.3 Monocytes % 11.9 Eosinophils % 6.7 H Basophils % 0.7 Absolute Neutrophils 5.4 Absolute Lymphocytes 3.1 Absolute Monocytes 1.3 Absolute Eosinophils 0.7 H Absolute Basophils 0.1 Sodium 142.6 Potassium 3.9 Chloride 107 Carbon Dioxide 25 Anion Gap 11 BUN 19 Creatinine 0.92 Est GFR ( Amer) > 60 Est GFR (Non-Af Amer) > 60 Glucose 129 H Calcium 9.0 Total Bilirubin 0.6 AST 44 ALT 36 Alkaline Phosphatase 63 Total Protein 5.6 L Albumin 3.1 L 04/30/17 04/30/17 04/30/17 08:19 08:19 15:02 Creatine Kinase 385 H Cancelled CK-MB (CK-2) 7.62 H Troponin I 0.176 04/30/17 04/30/17 04/30/17 15:02 16:30 16:30 Creatine Kinase 581 H CK-MB (CK-2) Cancelled 9.12 H Troponin I Cancelled 0.524 04/30/17 04/30/17 20:00 20:00 Creatine Kinase 654 H CK-MB (CK-2) 10.40 H Troponin I 0.761 Impressions: Chest X-Ray 04/29/17 23:13 IMPRESSION: NO ACUTE RADIOGRAPHIC FINDING IN THE CHEST. Chest/Abdomen CTA 04/30/17 00:00 IMPRESSION: NORMAL CTA OF THE CHEST. NO PULMONARY EMBOLI. Abdomen/Pelvis CT 04/30/17 01:17 IMPRESSION: 1. No acute inflammatory or obstructive abnormality identified. 2. Punctate nonobstructing right renal calculi. 3. Diverticulosis without evidence of acute diverticulitis. This exam was performed according to our departmental dose-optimization program, which includes automated exposure control, adjustment of the mA and/or kV according to patient size and/or use of iterative reconstruction technique. Assessment & Plan - Diagnosis (1) Atrial fibrillation Qualifiers: Atrial fibrillation type: paroxysmal Qualified Code(s): I48.0 - Paroxysmal atrial fibrillation Is this a current diagnosis for this admission?: Yes (2) Hypertension Qualifiers: Hypertension type: essential hypertension Qualified Code(s): I10 - Essential (primary) hypertension Is this a current diagnosis for this admission?: Yes (3) Type 2 diabetes mellitus Qualifiers: Diabetes mellitus complication status: with unspecified complications Is this a current diagnosis for this admission?: Yes (4) Sepsis Qualifiers: Sepsis type: sepsis due to unspecified organism Qualified Code(s): A41.9 - Sepsis, unspecified organism Is this a current diagnosis for this admission?: Yes (5) NSTEMI (non-ST elevated myocardial infarction) Is this a current diagnosis for this admission?: Yes - Notes Notes: Patient's rhythm strips reviewed. No further paroxysmal atrial fibrillation noted but patient has frequent APCs. Recommend maintaining electrolytes within normal range. Elevated troponin I and non-STEMI: Most likely related to sepsis rather than acute coronary syndrome. Patient doing reasonably well on medical management. Will continue with it. Patient has been advised to report any chest discomfort. Patient was advised close cardiology follow-up. Atrial fibrillation: Paroxysmal. Patient has high [id number] score. At this point recommend chronic anticoagulation if there are no contraindication. Patient empirically started on Eliquis therapy. For rate control patient placed on metoprolol succinate 25 mg p.o. twice daily. Increase as tolerated. Hypertension: Blood pressure under satisfactory control. Continue with current antihypertensive regimen. Diabetes: Recommend good control of blood sugar. However should avoid any hypoglycemia and hyperglycemia. Patient being expertly managed by primary care MRodneyD/hospitalist Sepsis: This is being well managed by the supervisor blood donor recruiters. Currently it is coming under control. Continue current therapeutic regimen. Recommend maintaining electrolytes within normal range. - Time Time with patient: Greater than 35 minutes - CODE STATUS was discussed, patient remains full code. Surrogate decision-maker unchanged. Multiple medical problems were addressed. More than 50% of the time spent coordinating care, discussing management plans with involved caregivers. Management plans discussed with involved personnels. Medical decision making was of high complexity, patient's has multiple comorbidities. Medications reviewed and adjusted accordingly: Yes
[2017-05-04] MEDS: ATORVASTATIN CALCIUM 40 MG TABLET PO SCH (01:38)
[2017-05-04] MEDS: AMOXICILLIN TR/POT CLAVULANATE 500-125 MG TAB PO SCH ×2 (01:38→08:04)
[2017-05-04] MEDS: METOPROLOL SUCCINATE 25 MG TAB.SR.24H PO SCH ×2 (01:39→09:22)
[2017-05-04] MEDS: CLONIDINE HCL 0.1 MG TABLET PO SCH ×2 (01:39→08:03)
[2017-05-04 05:41] LABS: ABSOLUTE BASOPHILS # (AUTO) 0.1 10^3/uL (0.0-0.2); ABSOLUTE EOSINOPHILS # (AUTO) 0.7 10^3/uL (0.0-0.6); ABSOLUTE LYMPHOCYTES (AUTO) 2.6 10^3/uL (0.5-4.7); ABSOLUTE MONOCYTES (AUTO) 1.1 10^3/uL (0.1-1.4); BASOPHILS % (AUTO) 0.8 % (0-2); EOSINOPHILS % (AUTO) 7.8 % (0-6); HEMATOCRIT 36.6 % (37.9-51.0); HEMOGLOBIN 12.4 g/dL (13.5-17.0); LYMPHOCYTES % (AUTO) 27.2 % (13-45); MEAN CORPUSCULAR HEMOGLOBIN 31.3 pg (27.0-33.4); MEAN CORPUSCULAR HGB CONC 33.9 g/dL (32.0-36.0); MEAN CORPUSCULAR VOLUME 92 fl (80-97); MONOCYTES % (AUTO) 11.4 % (3-13); PLATELET COUNT 239 10^3/uL (150-450); RED BLOOD COUNT 3.96 10^6/uL (4.35-5.55); RED CELL DISTRIBUTION WIDTH 13.5 % (11.5-14.0); SEGMENTED NEUTROPHILS % (AUTO) 52.8 % (42-78); TOTAL CELLS COUNTED % (AUTO) 100 %; WHITE BLOOD COUNT 9.4 10^3/uL (4.0-10.5)
[2017-05-04 06:03] LABS: ANION GAP 11 (5-19); BLOOD UREA NITROGEN 22 mg/dL (7-20); CALCIUM 9.4 mg/dL (8.4-10.2); CARBON DIOXIDE 27 mmol/L (22-30); CHLORIDE 103 mmol/L (98-107); GLUCOSE 107 mg/dL (75-110); POTASSIUM 3.9 mmol/L (3.6-5.0); SODIUM 141.1 mmol/L (137-145)
[2017-05-04] MEDS: LANSOPRAZOLE 30 MG TAB.RAP.DR PO SCH (08:02)
[2017-05-04] MEDS: LEVOTHYROXINE SODIUM 0.088 MG TABLET PO SCH (08:02)
[2017-05-04 09:12] VITALS: BP 107/56
[2017-05-04] MEDS: LACTOBACILLUS ACIDOPHILUS 250 MG TAB PO SCH (09:21)
[2017-05-04] MEDS: OSELTAMIVIR PHOSPHATE 75 MG CAPSULE PO SCH (09:21)
[2017-05-04] MEDS: APIXABAN 2.5 MG TABLET PO SCH (09:21)
[2017-05-04] MEDS: METFORMIN HCL 500 MG TABLET PO SCH (09:22)
[2017-05-04] MEDS ORDERED: LISINOPRIL 10 MG TABLET PO SCH (10:00)
--- NOTE | 2017-05-04 12:38 | PDOC DISCHARGE SUMMARY ---
General - Admit/Disc Date/PCP Admission Date/Primary Care Provider: 04/30/17 02:51 ROXY AQUINO MD Discharge Date: 05/04/17 - Discharge Diagnosis (1) Sepsis Is this a current diagnosis for this admission?: Yes Summary: Currently all resolved with the not very clear etiology possible most likely a flulike symptomsWith all cultures is negative CT abdomen pelvis and CT chest is all negativesPatient response with antibiotics and the Tamiflu (2) Tachycardia Is this a current diagnosis for this admission?: Yes Summary: Probably from the atrial fibrillation's currently all stable (3) Hypokalemia Is this a current diagnosis for this admission?: Yes Summary: Currently resolved (4) Hypertension Is this a current diagnosis for this admission?: Yes Summary: Continues to current medication (5) Type 2 diabetes mellitus Is this a current diagnosis for this admission?: Yes Summary: Currently stable on discharge (6) Atrial fibrillation Is this a current diagnosis for this admission?: Yes Summary: Currently on Eliquis and beta-anisha and follow with the cardiology as outpatient and discussed with the patient and the family about the fall precautions and the side effect of the Eliquis - Additional Information Resuscitation Status: Full Code Discharge Diet: Diabetic Discharge Activity: Activity As Tolerated Prescriptions: Amox Tr/Potassium Clavulanate [Augmentin "500" Tablet] 1 tab PO Q8 #15 tablet Apixaban [Eliquis 2.5 mg Tablet] 2.5 mg PO BID #60 tablet Lactobacillus Acidophilus [Acidophilus] 1 each PO BID #10 tablet Lisinopril [Prinivil 10 mg Tablet] 10 mg PO DAILY #0 tablet Metoprolol Succinate [Toprol Xl 25 mg Tab.sr] 25 mg PO Q12 #60 tab.sr.24h Oseltamivir Phosphate [Tamiflu 75 mg Capsule] 75 mg PO BID #4 capsule Home Medications: Amlodipine Besylate [Norvasc 10 mg Tablet] 10 mg PO DAILY 04/30/17 Aspirin [Ecotrin 81 mg EC Tablet] 81 mg PO DAILY 04/30/17 Atorvastatin Calcium [Lipitor 40 mg Tablet] 40 mg PO QHS 04/30/17 Clonidine HCl [Catapres 0.3 mg Tablet] 0.3 mg PO Q8 04/30/17 Levothyroxine Sodium [Synthroid 0.088 mg Tablet] 0.088 mg PO Q6AM 04/30/17 Metformin HCl [Glucophage] 1,000 mg PO DAILY 04/30/17 Pantoprazole Sodium [Protonix] 40 mg PO DAILY 04/30/17 Amox Tr/Potassium Clavulanate [Augmentin "500" Tablet] 1 tab PO Q8 #15 tablet 05/04/17 Apixaban [Eliquis 2.5 mg Tablet] 2.5 mg PO BID #60 tablet 05/04/17 Lactobacillus Acidophilus [Acidophilus] 1 each PO BID #10 tablet 05/04/17 Lisinopril [Prinivil 10 mg Tablet] 10 mg PO DAILY #0 tablet 05/04/17 Metoprolol Succinate [Toprol Xl 25 mg Tab.sr] 25 mg PO Q12 #60 tab.sr.24h Oseltamivir Phosphate [Tamiflu 75 mg Capsule] 75 mg PO BID #4 capsule 05/04/17 History of Present Illness History of Present Illness: JOSE RAMON RAYA is a 81 year old male This is a 81-year-old male's brought to the emergency department with the generalized weakness and altered mental status and possible sepsis and lactic acidosis and admitting in the hospital and started on a broad-spectrum antibiotics and the Tamiflu Hospital Course Hospital Course: This 81-year-old male's admitting in the hospital is because possible sepsis and unclear etiologies with extensive workup done including the all cultures negative CT scan of the abdomen and pelvis were also negative for any acute findings and the patient's CT angiogram was also negative's for any pulmonary embolisms And was started on the Tamiflu for possible flu and started the IV Unasyn's and patient response very well with that Also have ARodney hobbs with rapid ventricular response and Dr. Lezama was consulted and patient was put on Eliquis in the beta-blockers IV antibiotic was switched to the p.o. and the patient's remain afebrile white count is normal Patient physical therapy evaluations and walk without any problems p.o. intake is all good Patient expressed to go home and at this point is pretty much patient on the p.o. medications discussed with the cardiology standpoints patient is stable to go homes and follow-up outpatients cardiology for further ongoing evaluations and echocardiograms discussions Discussed with the patient's and I patient's currently doing well Arrange the home health and physical therapy and fall precautions Physical Exam Vital Signs: Temp Pulse Resp BP Pulse Ox 98.6 F 109 H 16 107/56 L 97 05/04/17 09:11 05/04/17 09:11 05/04/17 09:11 05/04/17 09:11 05/04/17 09:11 Intake & Output 05/03/17 05/04/17 05/05/17 06:59 06:59 06:59 Intake Total 2468 689 Output Total 2325 200 Balance 143 489 Weight 78.9 kg 79.6 kg General appearance: PRESENT: no acute distress, well-developed, well-nourished Head exam: PRESENT: atraumatic, normocephalic Eye exam: PRESENT: conjunctiva pink, EOMI, PERRLA. ABSENT: scleral icterus Ear exam: PRESENT: normal external ear exam Mouth exam: PRESENT: moist, tongue midline Neck exam: PRESENT: full ROM. ABSENT: carotid bruit, JVD, lymphadenopathy, thyromegaly Respiratory exam: PRESENT: clear to auscultation anish Cardiovascular exam: PRESENT: RRR. ABSENT: diastolic murmur, rubs, systolic murmur Pulses: PRESENT: normal dorsalis pedis pul, +2 pedal pulses bilateral Vascular exam: PRESENT: normal capillary refill GI/Abdominal exam: PRESENT: normal bowel sounds, soft. ABSENT: distended, guarding, mass, organolmegaly, rebound, tenderness Rectal exam: PRESENT: deferred Extremities exam: ABSENT: full ROM, left AKA, right AKA, left BKA, right BKA, calf tenderness, joint swelling, pedal edema, tenderness, other Musculoskeletal exam: ABSENT: ambulatory, deformity, dislocation, full ROM, normal inspection, tenderness, other Neurological exam: PRESENT: alert, awake, oriented to person, oriented to place , oriented to time, oriented to situation, CN II-XII grossly intact. ABSENT: motor sensory deficit Psychiatric exam: PRESENT: appropriate affect, normal mood. ABSENT: homicidal ideation, suicidal ideation Skin exam: PRESENT: dry, intact, warm. ABSENT: cyanosis, rash Results Laboratory Results: 05/04/17 04:40 05/04/17 04:40 05/04/17 05/04/17 04:40 04:40 WBC 9.4 RBC 3.96 L Hgb 12.4 L Hct 36.6 L MCV 92 MCH 31.3 MCHC 33.9 RDW 13.5 Plt Count 239 Seg Neutrophils % 52.8 Lymphocytes % 27.2 Monocytes % 11.4 Eosinophils % 7.8 H Basophils % 0.8 Absolute Neutrophils 5.0 Absolute Lymphocytes 2.6 Absolute Monocytes 1.1 Absolute Eosinophils 0.7 H Absolute Basophils 0.1 Sodium 141.1 Potassium 3.9 Chloride 103 Carbon Dioxide 27 Anion Gap 11 BUN 22 H Creatinine 1.02 Est GFR ( Amer) > 60 Est GFR (Non-Af Amer) > 60 Glucose 107 Calcium 9.4 04/30/17 04/30/17 04/30/17 08:19 08:19 15:02 Creatine Kinase 385 H Cancelled CK-MB (CK-2) 7.62 H Troponin I 0.176 04/30/17 04/30/17 04/30/17 15:02 16:30 16:30 Creatine Kinase 581 H CK-MB (CK-2) Cancelled 9.12 H Troponin I Cancelled 0.524 04/30/17 04/30/17 20:00 20:00 Creatine Kinase 654 H CK-MB (CK-2) 10.40 H Troponin I 0.761 Impressions: Chest X-Ray 04/29/17 23:13 IMPRESSION: NO ACUTE RADIOGRAPHIC FINDING IN THE CHEST. Chest/Abdomen CTA 04/30/17 00:00 IMPRESSION: NORMAL CTA OF THE CHEST. NO PULMONARY EMBOLI. Abdomen/Pelvis CT 04/30/17 01:17 IMPRESSION: 1. No acute inflammatory or obstructive abnormality identified. 2. Punctate nonobstructing right renal calculi. 3. Diverticulosis without evidence of acute diverticulitis. This exam was performed according to our departmental dose-optimization program, which includes automated exposure control, adjustment of the mA and/or kV according to patient size and/or use of iterative reconstruction technique. Plan Time Spent: Greater than 30 Minutes - Patient's discharge home with the stable conditions follow outpatients repeat the CBC Chem-7 in 2 days and follow with the cardiology as outpatients His lisinopril was reduced due to the increase of susi pho[place]
--- NOTE | 2017-05-04 18:26 | XCELERA REPORT ---
[address] [address] Transthoracic Echocardiogram Report Name: JOSE RAMON RAYA Age: 81 yrs Gender: Male : 1935 Patient Status: Inpatient Patient Location: [address] [place], [place] [address] Study Date: 05/04/2017 10:42 AM Height: 71 in Weight: 172 lb BSA: 2.0 m2 Procedure: A complete two-dimensional transthoracic echocardiogram was performed (2D, M-mode, spectral and color flow Doppler). The study was technically difficult with many images being suboptimal in quality. Reason For Study: cardic arrythemia Ordering Physician: ROXY AQUINO Performed By: Scarlett Barrientos Interpretation Summary The study was technically difficult with many images being suboptimal in quality. Left ventricular systolic function is low normal. There is mild concentric left ventricular hypertrophy. The left ventricle is grossly normal size. Doppler measurements suggest pseudonormalized left ventricular relaxation, which is associated with grade II/IV or mild to moderate diastolic dysfunction Regional wall motion abnormalities cannot be excluded due to limited visualization. The right ventricular systolic function is normal. Borderline left atrial enlargement. The right atrium is normal in size There is a mild amount of mitral regurgitation There is no mitral valve stenosis. There is a mild amount of aortic regurgitation There is no aortic valve stenosis There is a trace or physiologic amount of tricuspid regurgitation Tricuspid regurgitation jet envelope not well defined to measure RV systolic pressure accurately. The aortic root is not well visualized. The inferior vena cava was not well visualized There is no pericardial effusion. MMode/2D Measurements & Calculations RVDd: 2.9 cm LVIDd: 4.1 cm FS: 29.9 % Ao root diam: 3.3 cm IVSd: 1.2 cm LVIDs: 2.8 cm EDV(Teich): 72.4 ml LVPWd: 1.1 cm ESV(Teich): 30.7 ml Ao root area: 8.8 cm2 EF(Teich): 57.6 % Doppler Measurements & Calculations MV E max sage: MV dec slope: Ao V2 max: AI max sage: 72.5 cm/sec 136.7 cm/sec 330.6 cm/sec MV A max sage: 259.4 cm/sec2 Ao max PG: AI max P.1 cm/sec MV dec time: 7.5 mmHg 43.7 mmHg MV E/A: 0.57 0.28 sec AI dec slope: 67.2 cm/sec2 AI P1/2t: 1440 msec LV V1 max PG: PA V2 max: TR max sage: 4.1 mmHg 66.2 cm/sec 219.1 cm/sec LV V1 max: PA max P.8 mmHg TR max P.7 cm/sec 19.2 mmHg Left Ventricle The left ventricle is grossly normal size. There is mild concentric left ventricular hypertrophy. Left ventricular systolic function is low normal. Doppler measurements suggest pseudonormalized left ventricular relaxation, which is associated with grade II/IV or mild to moderate diastolic dysfunction. Regional wall motion abnormalities cannot be excluded due to limited visualization. Right Ventricle The right ventricle is grossly normal size. There is normal right ventricular wall thickness. The right ventricular systolic function is normal. Atria The right atrium is normal in size. Borderline left atrial enlargement. Interarterial septum not well visualized and not well dopplered. Cannot comment on ASD/PFO presence. Mitral Valve The mitral valve is grossly normal. There is no mitral valve stenosis. There is a mild amount of mitral regurgitation. Aortic Valve The aortic valve is not well visualized secondary to technical limitations. There is no aortic valve stenosis. There is a mild amount of aortic regurgitation. Tricuspid Valve The tricuspid valve is not well visualized, but is grossly normal. There is no tricuspid stenosis. There is a trace or physiologic amount of tricuspid regurgitation. Tricuspid regurgitation jet envelope not well defined to measure RV systolic pressure accurately. Pulmonic Valve The pulmonic valve is not well visualized. Great Vessels The aortic root is not well visualized. The inferior vena cava was not well visualized. Effusions There is no pericardial effusion. : ROXY AQUINO > Dasha Lezama
--- NOTE | 2017-05-04 19:19 | PDOC PROGRESS REPORT ---
Subjective Progress Note for:: 05/04/17 Subjective:: Patient seen prior to discharge on morning rounds. Patient seems to be doing better with gradual improvement. Pt is denying any chest arm or neck discomfort. Patient denying any PND, orthopnea. Patient denied any sustained palpitations, dizziness, syncope, near syncope. Patient denying any fever chills. Patient denying any other significant discomfort. Patient is maintaining sinus rhythm. Frequent APCs and occasional VPCs noted. Review of systems: Rest review of systems negative. Medications: Medications have been reviewed. Reason For Visit: SEPSIS SYNDROME CAUSE Physical Exam Vital Signs: Temp Pulse Resp BP Pulse Ox 98.6 F 109 H 16 107/56 L 97 05/04/17 09:11 05/04/17 09:11 05/04/17 09:11 05/04/17 09:11 05/04/17 09:11 Intake & Output 05/03/17 05/04/17 05/05/17 06:59 06:59 06:59 Intake Total 2468 689 Output Total 2325 200 Balance 143 489 Weight 78.9 kg 79.6 kg Exam: GENERAL: well-nourished and in no acute distress. Alert and oriented x3 HEAD: Atraumatic, normocephalic. EYES: Pupils equal round and reactive to light, extraocular movements intact, sclera anicteric, conjunctiva are normal. ENT: TMs normal, nares patent, oropharynx clear without exudates. Moist mucous membranes. No oral ulcerations or bleeding gums noted NECK: supple without lymphadenopathy. Trachea is central. No cervical or axillary lymphadenopathy noted. Carotids are 2+, JVD WNL LUNGS: Respiration seems nonlabored, no significant accessory muscle action noted. Breath sounds clear to auscultation bilaterally and equal noted. No wheezes rales or rhonchi noted. No significant dullness noted on percussion. CHEST: Palpation of the chest wall shows no significant chest wall tenderness. No other significant abnormalities noted. 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 ABDOMEN: Soft, no significant tenderness appreciated, normoactive bowel sounds. No guarding, no rebound. No rigidity noted . No masses appreciated. EXTREMITIES: Pedal pulses are 1-2+, no calf tenderness noted. No clubbing or cyanosis.trace to 1+ pedal edema noted NEUROLOGICAL: Focused neurological exam showed no significant neurologic deficit. Normal speech, no focal weakness appreciated. PSYCH: Normal mood, normal affect. Judgment and insight within normal limits. SKIN: No significant ecchymosis, rash, ulcerations or signs of pruritus noted. MUSCULOSKELETAL EXAM: No significant joint swelling noted. Results Laboratory Results: 05/04/17 04:40 05/04/17 04:40 05/04/17 05/04/17 04:40 04:40 WBC 9.4 RBC 3.96 L Hgb 12.4 L Hct 36.6 L MCV 92 MCH 31.3 MCHC 33.9 RDW 13.5 Plt Count 239 Seg Neutrophils % 52.8 Lymphocytes % 27.2 Monocytes % 11.4 Eosinophils % 7.8 H Basophils % 0.8 Absolute Neutrophils 5.0 Absolute Lymphocytes 2.6 Absolute Monocytes 1.1 Absolute Eosinophils 0.7 H Absolute Basophils 0.1 Sodium 141.1 Potassium 3.9 Chloride 103 Carbon Dioxide 27 Anion Gap 11 BUN 22 H Creatinine 1.02 Est GFR ( Amer) > 60 Est GFR (Non-Af Amer) > 60 Glucose 107 Calcium 9.4 04/30/17 04/30/17 04/30/17 08:19 08:19 15:02 Creatine Kinase 385 H Cancelled CK-MB (CK-2) 7.62 H Troponin I 0.176 04/30/17 04/30/17 04/30/17 15:02 16:30 16:30 Creatine Kinase 581 H CK-MB (CK-2) Cancelled 9.12 H Troponin I Cancelled 0.524 04/30/17 04/30/17 20:00 20:00 Creatine Kinase 654 H CK-MB (CK-2) 10.40 H Troponin I 0.761 EKG Comments: Telemetry strips shows sinus rhythm with frequent APCs and VPCs. No sustained tachycardia or bradycardia arrhythmias noted. Impressions: Chest X-Ray 04/29/17 23:13 IMPRESSION: NO ACUTE RADIOGRAPHIC FINDING IN THE CHEST. Chest/Abdomen CTA 04/30/17 00:00 IMPRESSION: NORMAL CTA OF THE CHEST. NO PULMONARY EMBOLI. Abdomen/Pelvis CT 04/30/17 01:17 IMPRESSION: 1. No acute inflammatory or obstructive abnormality identified. 2. Punctate nonobstructing right renal calculi. 3. Diverticulosis without evidence of acute diverticulitis. This exam was performed according to our departmental dose-optimization program, which includes automated exposure control, adjustment of the mA and/or kV according to patient size and/or use of iterative reconstruction technique. Assessment & Plan - Diagnosis (1) Atrial fibrillation Qualifiers: Atrial fibrillation type: paroxysmal Qualified Code(s): I48.0 - Paroxysmal atrial fibrillation Is this a current diagnosis for this admission?: Yes (2) Hypertension Qualifiers: Hypertension type: essential hypertension Qualified Code(s): I10 - Essential (primary) hypertension Is this a current diagnosis for this admission?: Yes (3) Type 2 diabetes mellitus Qualifiers: Diabetes mellitus complication status: with unspecified complications Is this a current diagnosis for this admission?: Yes (4) Sepsis Qualifiers: Sepsis type: sepsis due to unspecified organism Qualified Code(s): A41.9 - Sepsis, unspecified organism Is this a current diagnosis for this admission?: Yes (5) NSTEMI (non-ST elevated myocardial infarction) Is this a current diagnosis for this admission?: Yes - Notes Notes: 2D echo shows LVEF to be relatively well preserved. 2D echo was technically difficult however. At this point agree with medical management. Atrial fibrillation: Paroxysmal. Patient has high [id number] score. At this point recommend chronic anticoagulation if there are no contraindication. Patient empirically started on Eliquis therapy. For rate control patient placed on metoprolol succinate 25 mg p.o. twice daily. Patient seems to be tolerating this dose well without any recurrence of atrial fibrillation. Non-STEMI: Most likely related to metabolic reasons and sepsis. 2D echo results were discussed with the patient. Since the LVEF is well preserved, it was felt that medical management would be a satisfactory option especially as patient's age. This was discussed. Patient agrees with medical management. Hypertension: Blood pressure under satisfactory control. Continue with current antihypertensive regimen. Diabetes: Recommend good control of blood sugar. However should avoid any hypoglycemia and hyperglycemia. Patient being expertly managed by primary care M.D/hospitalist Sepsis: This is being well managed by the corporate legal manager. currently resolved.. Recommend maintaining electrolytes within normal range. Patient does wish to follow-up with me at his primary care department head. Will be happy to accept him as my patient for cardiology services. - Time Time with patient: Greater than 35 minutes - CODE STATUS was discussed, patient remains full code. Surrogate decision-maker unchanged. Multiple medical problems were addressed. More than 50% of the time spent coordinating care, discussing management plans with involved caregivers. Management plans discussed with involved personnels. Medical decision making was of moderate to high complexity, patient's has multiple comorbidities. 2D echo results discussed with the patient. Management plans discussed. Patient agreeable. Medications reviewed and adjusted accordingly: Yes
== END 2017-05-04 11:17 | disposition home or self-care (01) | DRG 872 ==
LOC: ER 22:42 → UNDOADMIN 04-30 02:51 → EH 04-30 02:51 → 3W 04-30 17:00
PROVIDERS: ADMIT Family Medicine; ATTEND Family Medicine
DX: A41.89 Other specified sepsis (principal); J11.1 Influenza due to unidentified influenza virus with other respiratory manifestations; I48.0 Paroxysmal atrial fibrillation; E83.42 Hypomagnesemia; R74.8 Abnormal levels of other serum enzymes; E87.6 Hypokalemia; Z87.891 Personal history of nicotine dependence; E11.9 Type 2 diabetes mellitus without complications; E78.5 Hyperlipidemia, unspecified; I10 Essential (primary) hypertension; Z79.82 Long term (current) use of aspirin; Z79.899 Other long term (current) drug therapy; Z79.84 Long term (current) use of oral hypoglycemic drugs; Z79.02 Long term (current) use of antithrombotics/antiplatelets
CPT/HCPCS: 36415; 71045; 71275; 74177; 80048; 80053; 80061; 80076; 81001; 82140; 82150; 82550; 82553; 82803; 82962; 83036; 83605; 83690; 83735; 84100; 84439; 84443; 84484; 85025; 85610; 85730; 87040; 87086; 93005; 93010; 93306; 94640; 96361; 96365; 99285; G8978-GP; G8979-GP; J0295; J1650; J2543; J3370; J3475; J3480; J3490; J7030; J7040; J7120